=== PATIENT | male | born 1950 | race Caucasian/White ===

== ENCOUNTER 2018-08-14 00:19 | Emergency (ER) | payer OTHER ==
--- OUTSIDE RECORDS SUMMARY | 2018-08-14 00:51 | XMS REPORT | Continuity of Care Document ---
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 Active Onset: 04/11/2012 Chest pain Nain Jenkins M.D. Active Onset: 04/11/2012 Electrocardiogram abnormal Nain Jenkins M.D. Active Onset: 04/11/2012 Tachycardia Nain Jenkins M.D. Active Onset: 05/26/2012 Supraventricular premature beats Nain Jenkins M.D. Active Onset: 02/07/2013 Obstructive sleep apnea syndrome Nain Jenkins M.D. Active Onset: 01/01/2014 Essential hypertension Nain Jenkins M.D. Active Family History Date Family Member(s) Problem(s) Comments Onset: (age 84 Years) Father Stent no [place] Social History Type Date Description Comments Sex Unknown Marital Status Single Occupation [employer] Work[employer] ETOH Use Occasionally consumes alcohol Tobacco Use Start: Unknown End: Patient is a former smoker Unknown Recreational Drug Use Never Used Drugs Smoking Status Reviewed: 07/29/18 Patient is a former smoker Exercise Type/Frequency Exercises regularly Allergies, Adverse Reactions, Alerts Date Description Reaction Status Severity Comments 04/07/2012 Ibuprofen Active Medications Medication Date Status Form Strength Qnty SIG Indications Ordering Provider Hydrochlorothiazide 05/26 Active Tablets 25mg 90tab 1 by mary s mouth S. every day Iván Jenkins Ramipril Active Capsules 10mg 90cap 1 po qd Unknown /0000 s Aspirin Active Tablets 81mg 1 po qd Unknown /0000 Tramadol HCL Active Tablets 50mg 40tab 1-2 Unknown / s tablets every 6 hours as needed Multivitamins Active Tablets 30tab 1 po qd Unknown /0000 s Metoprolol Tartrate Active Tablets 25mg 180ta 1 by bs mouth S. t.i.d Iván Jenkins Cpap Active Device for use Unknown / while sleeping Lopressor 12/26 Hx Tablets 50mg 60tab 1/2 by s mouth S. - daily Gregory 01/01 Iván Hydrochlorothiazide Hx Tablets 12.5mg 90tab 1 po qd Unknown /0000 s - 05/26 Meclizine HCL 0000 Hx Tablets 25mg 1 tablet Unknown /0000 daily as - needed 11/25 Immunizations Description No Information Available Vital Signs Date Vital Result Comment 07/29/2018 11:13am Height 68 inches 5'8" Heart Rate 74 /min BP Systolic Sitting 142 mmHg rue large cuff BP Diastolic Sitting 90 mmHg rue large cuff Ejection Fraction 55-60% echo 12/28/17 11/26/2017 8:08am Height 68 inches 5'8" Weight 351.25 lb with shoes Heart Rate 94 /min BP Systolic Sitting 148 mmHg LA, l cuff BP Diastolic Sitting 78 mmHg LA, l cuff BMI (Body Mass Index) 53.4 kg/m2 Ejection Fraction 55%-60% echo 03/29/2017 9:16am Height 68 inches 5'8" Weight 330.25 lb with boots Heart Rate 74 /min BP Systolic Sitting 148 mmHg LA lrg cuff BP Diastolic Sitting 86 mmHg LA lrg cuff BMI (Body Mass Index) 50.2 kg/m2 Ejection Fraction 55% - 60% echo 01/03/14 07/21/2016 8:41am Height 68 inches 5'8" Weight 314.75 lb w/shoes Heart Rate 76 /min BP Systolic Sitting 158 mmHg LA lg cuff BP Diastolic Sitting 88 mmHg LA lg cuff BMI (Body Mass Index) 47.9 kg/m2 Ejection Fraction 55-60% Echo 12/07/13 11/01/2015 8:44am Height 68 inches 5'8" Weight 302.50 lb w/shoes Heart Rate 78 /min BP Systolic Sitting 116 mmHg LA lg cuff BP Diastolic Sitting 72 mmHg LA lg cuff BMI (Body Mass Index) 46.0 kg/m2 Ejection Fraction 55-60 echo 02/02/14 01/09/2015 8:48am Height 68 inches 5'8" Weight 300.00 lb Heart Rate 64 /min BP Systolic Sitting 142 mmHg LA, large BP Diastolic Sitting 78 mmHg LA, large BMI (Body Mass Index) 45.6 kg/m2 Ejection Fraction 55%-60% 01/03/14 06/15/2014 8:48am Height 68 inches 5'8" Weight 324.25 lb w/shoes Heart Rate 84 /min BP Systolic Sitting 138 mmHg LA lg cuff BP Diastolic Sitting 78 mmHg LA lg cuff Respiratory Rate 16 /min BMI (Body Mass Index) 49.3 kg/m2 01/01/2014 3:31pm Height 68 inches 5'8" Weight 300.00 lb Heart Rate 88 /min BP Systolic Sitting 144 mmHg BP Diastolic Sitting 78 mmHg BMI (Body Mass Index) 45.6 kg/m2 10/16/2013 8:34am Height 68 inches 5'8" Weight 310.00 lb Heart Rate 104 /min BP Systolic Sitting 144 mmHg BP Diastolic Sitting 84 mmHg BMI (Body Mass Index) 47.1 kg/m2 02/07/2013 8:43am Height 68 inches 5'8" Weight 316.00 lb Heart Rate 88 /min BP Systolic Sitting 148 mmHg BP Diastolic Sitting 80 mmHg Respiratory Rate 20 /min BMI (Body Mass Index) 48.0 kg/m2 06/23/2012 9:59am Height 68 inches 5'8" Weight 318.25 lb Heart Rate 104 /min rechecked 94 and regular BP Systolic Sitting 130 mmHg BP Diastolic Sitting 78 mmHg BMI (Body Mass Index) 48.4 kg/m2 05/26/2012 9:25am Height 68 inches 5'8" Weight 329.00 lb Heart Rate 88 /min BP Systolic 140 mmHg BP Diastolic 82 mmHg BMI (Body Mass Index) 50.0 kg/m2 04/11/2012 2:33pm Height 68 inches 5'8" Weight 326.00 lb Heart Rate 108 /min BP Systolic 144 mmHg BP Diastolic 92 mmHg BMI (Body Mass Index) 49.6 kg/m2 Results Test Date Facility Test Result H/L Range Note Laboratory test 12/30/2013 [facility] Troponin I 0.00 ng/mL N <0.03 1 finding [address] [place] [address] [phone] Comp Metabolic 12/30/2013 [facility] Sodium 142 mmol/L N 133- 145 Panel [address] [place] [address] [phone] Potassium 4.2 mmol/L N 3.7-5.6 Chloride 106 mmol/L N 101-111 Co2 Carbon Dioxide 28 mmol/L N 22-32 Anion Gap 8 mmol/L N 2-11 Glucose 98 mg/dL N 70-100 Blood Urea Nitrogen 21 mg/dL N 6-24 Creatinine 1.09 mg/dL N 0.67-1.17 BUN/Creatinine Ratio 19.3 N 8-20 Calcium 9.0 mg/dL N 8.6-10.3 Total Protein 6.3 g/dL Low 6.4-8.9 Albumin 4.2 g/dL N 3.2-5.2 Globulin 2.1 g/dL N 2-4 Albumin/Globulin Ratio 2.0 N 1-3 Total Bilirubin 0.60 mg/dL N 0.2-1.0 Alkaline Phosphatase 57 U/L N 34-104 Alt 11 U/L N 7-52 Ast 12 U/L Low 13-39 Egfr Non- 68.5 N >60 Egfr 88.2 N >60 2 CBC Auto Diff 12/30/2013 [facility] White Blood 10.2 10^3/uL N 4.8-10.[address] [place] [address] [phone] Red Blood Count 4.94 10^6/uL N 4.0-5.4 Hemoglobin 13.7 g/dL Low 14.0-18.0 Hematocrit 41 % Low 42-52 Mean Corpuscular Volume 83 fL N 80-94 Mean Corpuscular Hemoglobin 28 pg N 27-31 Mean Corpuscular HGB Conc 33 g/dL N 31-36 Red Cell Distribution Width 14 % N 10.5-15 Platelet Count 253 10^3/uL N 150-450 Mean Platelet Volume 9 um3 N 7.4-10.4 Abs Neutrophils 7.4 10^3/uL N 1.5-7.7 Abs Lymphocytes 1.8 10^3/uL N 1.0-4.8 Abs Monocytes 0.8 10^3/uL N 0-0.8 Abs Eosinophils 0.1 10^3/uL N 0-0.6 Abs Basophils 0.1 10^3/uL N 0-0.2 Abs Nucleated RBC 0.01 10^3/uL N Granulocyte % 72.4 % N 38-83 Lymphocyte % 17.7 % Low 25-47 Monocyte % 7.8 % N 1-9 Eosinophil % 1.4 % N 0-6 Basophil % 0.7 % N 0-2 Nucleated Red Blood Cells % 0.1 N Laboratory test 12/30/2013 [facility] Troponin I 0.00 ng/mL N <0.03 [address] [place] [address] [phone] Reference Range and Interpretation: TnI (ng/mL) Interpretation Less Than 0.03 ng/mL Not supportive of diagnosis of [place] 0.03 - 0.50 ng/mL Indeterminate: suggest serial studies if clinically indicated. Greater than 0.5 ng/mL Consistent with diagnosis of [place] 2 Because ethnic data is not always readily available, this report includes an eGFR for both -Americans and non- Americans. The National Kidney Disease Education Program (NKDEP) does not endorse the use of the MDRD equation for patients that are not between the ages of 18 and 70, are , have extremes of body size, muscle mass, or nutritional status, or are non- or non-. According to the National Kidney Foundation, irrespective of diagnosis, the stage of the disease is based on the level of kidney function: Stage Description GFR(mL/min/1.73 m(2)) 1 Kidney damage with normal or decreased GFR 90 2 Kidney damage with mild decrease in GFR 60-89 3 Moderate decrease in GFR 30-59 4 Severe decrease in GFR 15-29 5 Kidney failure <15 (or dialysis) 3 Reference Range and Interpretation: TnI (ng/mL) Interpretation Less Than 0.03 ng/mL Not supportive of diagnosis of [place] 0.03 - 0.50 ng/mL Indeterminate: suggest serial studies if clinically indicated. Greater than 0.5 ng/mL Consistent with diagnosis of [place] Procedures Date Code Description Status 07/29/2018 00986 EKG Tracing & Interpretation Completed 12/28/2017 94419 ECHO Transthoracic, Real-Time 2D With Doppler And Color Completed Flow 12/28/2017 66695 ECHO Transthoracic, Real-Time 2D With Doppler And Color Completed Flow 11/26/2017 49746 EKG Tracing & Interpretation Completed 03/29/2017 28594 EKG Tracing & Interpretation Completed 07/21/2016 08273 EKG Tracing & Interpretation Completed 11/01/2015 09709 EKG Tracing & Interpretation Completed 01/09/2015 09781 EKG Tracing & Interpretation Completed 06/15/2014 09093 EKG Tracing & Interpretation Completed 01/03/2014 12796 ECHO Transthoracic, Real-Time 2D With Doppler And Color Completed Flow 01/01/2014 76478 EKG Tracing & Interpretation Completed 12/01/2013 60500 Stress Test Supervsn W/Out I/R Completed 12/01/2013 45627 Treadmill Interp/Report Only Completed 11/15/2013 91753 Holter Monitoring 24 HR New Completed 10/16/2013 76425 EKG Tracing & Interpretation Completed 02/07/2013 57627 EKG Tracing & Interpretation Completed 05/05/2012 41977 Polysomnography Sleep Staging 4+ Parameters W/Cpap Completed 04/29/2012 37457 ECHO Transthoracic, Real-Time 2D With Doppler And Color Completed Flow 04/24/2012 80221 Polysomnography Sleep Staging 4+ Parameters Completed 04/13/2012 30743 Holter Monitor Review (24 hr)dr review & interp only Completed 04/11/2012 84559 EKG Tracing & Interpretation Completed 03/31/2012 58977 Treadmill Interp/Report Only Completed 03/31/2012 15967 Stress Test Supervsn W/Out I/R Completed Encounters Type Date Location Provider Dx Diagnosis Office Visit 11/26/2017 [facility] Qutaybparrish S. E66.01 Morbid ( severe) 8:20a Iván Jenkins obesity due to excess calories E78.2 Mixed hyperlipidemia G47.33 Obstructive sleep apnea (adult) (pediatric) I10 Essential (primary) hypertension R06.02 Shortness of breath Z68.43 Body mass index (BMI) 50-59.9 , adult Office Visit 03/29/2017 9:40a [facility] Nain S. I10 Cristo Jenkins M.D. (primary) hypertension G47.33 Obstructive sleep apnea (adult) (pediatric) E78.2 Mixed hyperlipidemia E66.01 Morbid (severe) obesity due to excess calories Z68.43 Body mass index (BMI) 50-59.9 , adult R94.31 Abnormal electrocardiogram [ECG] [EKG] Office Visit 07/21/2016 9:00a [facility] Nain S. I10 Cristo Jenkins M.D. (primary) hypertension G47.33 Obstructive sleep apnea (adult) (pediatric) E66.01 Morbid (severe) obesity due to excess calories E78.2 Mixed hyperlipidemia R94.31 Abnormal electrocardiogram [ECG] [EKG] Office Visit 11/01/2015 9:00a [facility] Nain S. I10 Cristo Jenkins M.D. (primary) hypertension G47.33 Obstructive sleep apnea (adult) (pediatric) E66.01 Morbid (severe) obesity due to excess calories E78.2 Mixed hyperlipidemia R42 Dizziness and giddiness Office Visit 01/09/2015 [facility] S. 401.9 Hypertension 9:00a Kae Jenkins M.D. Unspec 327.23 Obstructive Sleep Apnea Adult & Pediatric 278.01 Obesity Morbid 272.2 Hyperlipidemia Mixed Office Visit 06/15/2014 [facility] Gillette S. 401.9 Hypertension 9:00a Kae Jenkins M.D. Unspec 327.23 Obstructive Sleep Apnea Adult & Pediatric 278.01 Obesity Morbid Office Visit 01/01/2014 3:40p [facility] Debbietaybeh S. 786.50 Pain Chest Iván Jenkins Unspec 401.9 Hypertension Unspec 785.0 Tachycardia Unspec 278.01 Obesity Morbid 327.23 Obstructive Sleep Apnea Adult & Pediatric Office Visit 12/01/2013 2:31p [facility] Debbietaybparrish S. 786.50 Pain Chest Iván Jenkins Unspec 278.01 Obesity Morbid 327.23 Obstructive Sleep Apnea Adult & Pediatric Office Visit 12/01/2013 10:28a [facility] Torrey Underwood, 786.50 [facility],carlos alberto M.DNancy Unspec Hospitalists 401.9 Hypertension Unspec 278.01 Obesity Morbid 780.53 Hypersomnia W/ Sleep Apnea Unspecified Office Visit 11/30/2013 10:27a [facility] Bill Son 786.50 [facility],carlos alberto II, MMatthew Unspec Hospitalists 401.9 Hypertension Unspec 278.01 Obesity Morbid 780.53 Hypersomnia W/ Sleep Apnea Unspecified Office Visit 10/16/2013 [facility] Quyolieybeh S. 401.1 Hypertension 8:40a Cardiology Iván Jenkins Benign 327.23 Obstructive Sleep Apnea Adult [facility] Pediatric 794.31 Electrocardiogram (ECG) (EKG) Abnormal 785.0 Tachycardia Unspec Office Visit 02/07/2013 [facility] Nain S. 401.1 Hypertension 9:00a Kae Jenkins M.D. Benign 327.23 Obstructive Sleep Apnea Adult & Pediatric 427.61 Premature Beats Supraventricular 794.31 Electrocardiogram (ECG) (EKG) Abnormal Office Visit 06/23/2012 [facility] Selina Boyce, 401.1 Hypertension 10:30a Cardiology N.PNancy Benign Office Visit 05/26/2012 [facility] Nain S. 401.1 Hypertension 10:00a Kae Jenkins M.D. Benign 327.23 Obstructive Sleep Apnea Adult [facility] Pediatric 427.61 Premature Beats Supraventricular Office Visit 05/02/2012 2:18p Anabela Krueger 327.23 Obstructive Sleep Disorder [facility] Pediatric Office Visit 04/18/2012 10:51a Anabela Krueger 786.09 Dyspnea & Disorder [facility] Abnormalities Other 780.79 Malaise And Fatigue Other Office Visit 04/11/2012 [facility] Gil[facility] SNancy 401.1 Hypertension 3:00p Cardiology Iván Jenkins Benign 786.50 Pain Chest Unspec 794.31 Electrocardiogram (ECG) (EKG) Abnormal 785.0 Tachycardia Unspec Office 03/31/2012 [facility] Boudreaux 794.31 Electrocardiogram Visit 8:30a Cardiology Iván Jenkins (ECG) (EKG) Abnormal 786.50 Pain Chest Unspec 401.1 Hypertension Benign Plan of Treatment 07/29/2018 - Nain Jenkins M.D.G47.33 Obstructive sleep apnea (adult) ( pediatric)I10 Essential (primary) giqgvutrtgflF27.01 Morbid (severe) obesity due to excess hkfvhzroI66.2 Mixed scwdwgsnuslzfiU78.819 Aortic ectasia, unspecified siteNew Orders:Echocardiogram, Ordered: 07/29/18ollow up:8 months ov
--- NOTE | 2018-08-14 01:34 | ED ---
HPI Chest Pain - HPI Summary HPI Summary: This patient is a 67 year old M presenting to ED with a chief complaint of CP since 08/12/18. The CC is described as intermittent, lasting an average of 3-4 hours, usually comes after eating food. The patient rates the pain 3/10 in severity. Symptoms aggravated by nothing. Symptoms alleviated by nothing. Patient reports burping and occasional bilateral LE edema. Patient does not take any ASA and is allergic to ibuprofen. Last had a stress test about 3-4 years ago. PMHx of HTN. - History of Current Complaint Chief Complaint: EDChestWallPain Time Seen by Provider: 08/14/18 01:18 Hx Obtained From: Patient Onset/Duration: Started Days Ago Timing: Intermittent Current Severity: Mild Pain Intensity: 3 Pain Scale Used: 0-10 Numeric Aggravating Factor(s): Other: - after eating food Alleviating Factor(s): Nothing Associated Signs and Symptoms: Positive: Chest Pain, Other: - burping - Allergy/Home Medications Allergies/Adverse Reactions: Allergies Allergy/AdvReac Type Severity Reaction Status Date / Time MS Ibuprofen [Ibuprofen] AdvReac Intermediate Lower Verified 08/14/18 01:26 Kidney Function PMH/Surg Hx/FS Hx/Imm Hx Endocrine/Hematology History: Denies: Hx Diabetes Cardiovascular History: Reports: Hx Angina, Hx Hypertension Denies: Hx Coronary Artery Disease, Hx Hypercholesterolemia, Hx Myocardial Infarction, Hx Valvular Heart Disease Respiratory History: Reports: Hx Sleep Apnea Denies: Hx Asthma, Hx Chronic Obstructive Pulmonary Disease (COPD) GI History: Reports: Other GI Disorders - Obesity Sensory History: Reports: Hx Contacts or Glasses Opthamlomology History: Reports: Hx Contacts or Glasses - Surgical History Surgery Procedure, Year, and Place: T&A - Immunization History Date of Tetanus Vaccine: Unk Date of Influenza Vaccine: Fall 2012 Infectious Disease History: No Infectious Disease History: Denies: Traveled Outside the [place] in Last 30 Days - Family History Known Family History: Positive: Hypertension - Social History Alcohol Use: None Alcohol Amount: quit 2 wks ago Substance Use Type: Reports: None Hx Tobacco Use: Yes - QUIT 2008 Smoking Status (MU): Never Smoked Tobacco Type: Cigarettes Amount Used/How Often: 1 ppd Length of Time of Smoking/Using Tobacco: 30 years Have You Smoked in the Last Year: No Review of Systems Positive: Chest Pain Positive: Other - burping All Other Systems Reviewed And Are Negative: Yes Physical Exam - Summary Physical Exam Summary: VITAL SIGNS: Reviewed. GENERAL: Patient is a morbidly obese MALE who is lying comfortable in the stretcher. Patient is not in any acute respiratory distress. HEAD AND FACE: No signs of trauma. No ecchymosis, hematomas or skull depressions. No sinus tenderness. EYES: PERRLA, EOMI x 2, No injected conjunctiva, no nystagmus. EARS: Hearing grossly intact. Ear canals and tympanic membranes are within normal limits. MOUTH: Oropharynx within normal limits. NECK: Supple, trachea is midline, no adenopathy, no JVD, no carotid bruit, no c- spine tenderness, neck with full ROM. CHEST: Symmetric, no tenderness at palpation LUNGS: Clear to auscultation bilaterally. No wheezing or crackles. CVS: Regular rate and rhythm, S1 and S2 present, no murmurs or gallops appreciated. ABDOMEN: Soft, non-tender. No signs of distention. No rebound no guarding, and no masses palpated. Bowel sounds are normal. EXTREMITIES: FROM in all major joints, no edema, no cyanosis or clubbing. NEURO: Alert and oriented x 3. No acute neurological deficits. Speech is normal and follows commands. SKIN: Dry and warm Triage Information Reviewed: Yes Vital Signs On Initial Exam: Initial Vitals Temp Pulse Resp BP Pulse Ox 98 F 82 18 162/85 97 08/14/18 00:24 08/14/18 00:24 08/14/18 00:24 08/14/18 00:24 08/14/18 00:24 Vital Signs Reviewed: Yes Diagnostics - Vital Signs Vital Signs Temp Pulse Resp BP Pulse Ox 08/14/18 00:24 98 F 82 18 162/85 97 - Laboratory Result Diagrams: 08/14/18 01:38 08/14/18 01:38 Lab Statement: Any lab studies that have been ordered have been reviewed, and results considered in the medical decision making process. - Radiology CXR Radiology Interpretation Completed By: ED Physician Summary of Radiographic Findings: CXR reveals R basal atelectasis and no infiltrate. Pending radiologist offical report. - EKG 0117 Cardiac Rate: NL - 83 BPM EKG Rhythm: Sinus Rhythm ST Segment: Non-Specific Chest Pain Course/Dx - Course Assessment/Plan: This patient is a 67 year old M presenting to ED with a chief complaint of CP since 08/12/18. CXR reveals R basal atelectasis and no infiltrate. This patient will be discharged with instructions to see Dr. Jenkins as an outpatient to take a stress test. Patient understands and agrees. - Diagnoses Provider Diagnoses: Chest pain Discharge - Sign-Out/Discharge Documenting (check all that apply): Patient Departure - discharge - Discharge Plan Condition: Stable Disposition: HOME Patient Education Materials: Chest Pain (ED) Referrals: Nain Jenkins MD [Medical Doctor] - 08/15/18 Additional Instructions: Please see Dr. Jenkins to take a stress test as an outpatient on Wednesday, 08/15. RETURN TO THE EMERGENCY DEPARTMENT FOR CHANGING OR WORSENING SYMPTOMS. FOLLOW UP WITH PCP IN 1-2 DAYS. - Attestation Statements Document Initiated by Scribe: Yes Documenting Scribe: John Tello Provider For Whom Scribe is Documenting (Include Credential): Marek Su MD Scribe Attestation: IJohn, scribed for Marek Su MD on 08/14/18 at 0455. Status of Scribe Document: Ready
[2018-08-14 01:46] LABS: ABS Basophils 0.1 10^3/ul (0-0.2); ABS Eosinophils 0.1 10^3/ul (0-0.6); ABS Lymphocytes 1.4 10^3/ul (1.0-4.8); ABS Monocytes 0.9 10^3/ul (0-0.8); ABS Neutrophils 8.9 10^3/ul (1.5-7.7); ABS Nucleated RBC 0 10^3/ul; Eosinophil % 1.3 %; Hematocrit 41 % (42-52); Hemoglobin 13.7 g/dl (14.0-18.0); Lymphocyte % 12.4 %; Mean Corpuscular HGB Conc 33 g/dl (31-36); Mean Corpuscular Hemoglobin 27 pg (27-31); Mean Corpuscular Volume 82 fL (80-94); Mean Platelet Volume 8.6 fL (7.4-10.4); Nucleated Red Blood Cells % 0; Platelet Count 258 10^3/ul (150-450); Red Blood Count 5.04 10^6/ul (4.00-5.40); Red Cell Distribution Width 14 % (10.5-15); White Blood Count 11.4 10^3/ul (3.5-10.8)
[2018-08-14 02:03] LABS: EGFR Non-African American 73.9 (>60)
[2018-08-14 02:13] LABS: INR 0.94 (0.77-1.02)
[2018-08-14 05:15] VITALS: BP 158/86
== END 2018-08-14 05:10 | disposition home or self-care (01) ==
LOC: ED 00:19
DX: R07.9 Chest pain, unspecified (principal); I10 Essential (primary) hypertension; Z87.891 Personal history of nicotine dependence; E66.01 Morbid (severe) obesity due to excess calories
CPT/HCPCS: 36415; 71045; 80053; 83735; 84484; 85025; 85610; 85730; 93005; 99283

== ENCOUNTER 2019-12-03 15:53 | Emergency (ER) | payer MEDICARE ==
--- NOTE | 2019-12-03 16:11 | ED ---
Throat Pain/Nasal Congestion - HPI Summary HPI Summary: Patient is a 69 y/o M presenting to the ED for a chief complaint of right-sided dental pain, right-sided facial swelling, and throat pain that began on . Patient also reports intermittent fever and dysphasia. He denies shortness of breath. No aggravating or alleviating factors are reported. On 12/01/19, patient was seen by his dentist for throat pain who told the patient he did not appear to have an abscess. PMHx is significant for HTN and hernia. He is a former smoker. - History of Current Complaint Chief Complaint: EDDentalPain Time Seen by Provider: 12/03/19 16:05 Hx Obtained From: Patient Onset/Duration: Sudden Onset, Lasting Days, Still Present Severity: Moderate Associated Signs And Symptoms: Positive: Dysphagia Related History: T & A - Allergies/Home Medications Allergies/Adverse Reactions: Allergies Allergy/AdvReac Type Severity Reaction Status Date / Time niacin Allergy Unknown Unknown Verified 12/03/19 15:58 Reaction Details ibuprofen Allergy See Comment Verified 12/03/19 15:58 Home Medications: Home Medications Aspirin [Aspir 81] 81 mg PO DAILY 06/21/12 [History Confirmed 09/14/18] Multivitamin [Multivitamins] 1 cap PO DAILY 06/21/12 [History Confirmed 09/14/18 ] Ramipril 10 mg PO BEDTIME 06/21/12 [History Confirmed 09/14/18] Tramadol HCl 50 mg PO Q6H PRN 06/21/12 [History Confirmed 09/14/18] Hydrochlorothiazide 25 mg PO DAILY 06/24/12 [History Confirmed 09/14/18] Metoprolol Tartrate TAB* [Lopressor TAB*] 25 mg PO TID 12/30/13 [History Confirmed 09/14/18] PMH/Surg Hx/FS Hx/Imm Hx Previously Healthy: Yes Endocrine/Hematology History: Denies: Hx Diabetes Cardiovascular History: Reports: Hx Angina, Hx Hypertension Denies: Hx Coronary Artery Disease, Hx Hypercholesterolemia, Hx Myocardial Infarction, Hx Valvular Heart Disease Respiratory History: Reports: Hx Sleep Apnea Denies: Hx Asthma, Hx Chronic Obstructive Pulmonary Disease (COPD) GI History: Reports: Other GI Disorders - Obesity Sensory History: Reports: Hx Contacts or Glasses Opthamlomology History: Reports: Hx Contacts or Glasses - Surgical History Surgical History: Yes Surgery Procedure, Year, and Place: T&A - Immunization History Date of Tetanus Vaccine: Unk Date of Influenza Vaccine: Fall 2012 Infectious Disease History: No Infectious Disease History: Denies: Traveled Outside the [place] in Last 30 Days - Family History Known Family History: Positive: Hypertension - Social History Occupation: Employed Part-time Alcohol Use: Sober Alcohol Amount: quit 2 wks ago Hx Substance Use: No Substance Use Type: Reports: None Hx Tobacco Use: Yes - QUIT 2008 Smoking Status (MU): Former Smoker Type: Cigarettes Amount Used/How Often: 1 ppd Length of Time of Smoking/Using Tobacco: 30 years Have You Smoked in the Last Year: No Review of Systems Positive: Fever - In vitals, 98.2 F Positive: Dental Pain - Right-sided, Other - Positive throat pain and dysphagia Negative: Shortness Of Breath Positive: Edema - Right-sided facial All Other Systems Reviewed And Are Negative: Yes Physical Exam - Summary Physical Exam Summary: Constitutional: Well-developed, Well-nourished, Alert. (-) Distressed Skin: Warm, Dry HENT: Normocephalic; Atraumatic. Mandibular and sub-mandibular swelling of the lower jaw with poor dentition of the right molars. Eyes: Conjunctiva normal Neck: Musculoskeletal ROM normal neck. (-) JVD, (-) Stridor, (-) Nuchal rigidity Cardio: Rhythm irregularly irregular, Tachycardic, Heart sounds normal; Intact distal pulses; Radial pulses are 2+ and symmetric. (-) Murmur Pulmonary/Chest wall: Effort normal. (-) Respiratory distress, (-) Wheezes, (-) Rales Abd: Soft, (-) tenderness, (-) Distension, (-) Guarding, (-) Rebound Musculoskeletal: (-) Edema Lymph: (-) Cervical adenopathy Neuro: Alert, Oriented x3 Psych: Mood and affect Normal Triage Information Reviewed: Yes Vital Signs On Initial Exam: Initial Vitals Temp Pulse Resp BP Pulse Ox 98.2 F 127 22 142/85 97 12/03/19 15:54 12/03/19 15:54 12/03/19 15:54 12/03/19 15:54 12/03/19 15:54 Vital Signs Reviewed: Yes Procedures - Sedation Patient Received Moderate/Deep Sedation with Procedure: No Diagnostics - Vital Signs Vital Signs Temp Pulse Resp BP Pulse Ox 03/29/20 15:54 98.2 F 127 22 142/85 97 - Laboratory Result Diagrams: 12/03/19 16:27 12/03/19 16:27 Lab Statement: Any lab studies that have been ordered have been reviewed, and results considered in the medical decision making process. - CT Maxillofacial CT CT Interpretation Completed By: Radiologist Summary of CT Findings: Maxillofacial CT IMPRESSION: There is edema involving the right submandibular space with fluid collection in the right deep muscles of the floor of the mouth with a fluid collection measuring 2 cm presumably in the hyoglossus muscle. Mass effect is present at the base of the tongue on the oral pharynx. No definite narrowing of the larynx is otherwise noted. Reviewed by Dr. Correia. - EKG 18:46 Cardiac Rate: Other Rate - 132 BPM EKG Rhythm: Atrial Fibrillation ST Segment: Normal Ectopy: None Summary of EKG Findings: An EKG at 18:46 reveals atrial fibrillation with 132 BPM, nml axis, nml intervals. No STEMI. No acute changes. ED physician has reviewed and interpreted this EKG. EENT Course/Dx - Course Course Of Treatment: 69 y/o male p/w R facial swelling and concern for dental abscess. - exam w R sided swelling, submandibular swelling, no trismus. CT concerning for Oc's. Given clindamycin 600 mg, levaquin 750 mg. 2 L IVF. 8 mg morphine for pain. Easy WOB on RA. D/w ENT at who recommends transfer to facility w dental/OMFS. D/w [facility] transfer [place], who accepts the patient. - Diagnoses Provider Diagnoses: Oc's angina, Tachycardia, New onset atrial fibrillation - Provider Notifications Discussed Care Of Patient With: Trace Gallego - At 18:00, [facility] at [facility] requests patient transfer to a facility with oral surgery/ dental. At 18:13, Dr. Jalyn Payne at [facility] reviewed the patients case and agrees to accept the patient as a transfer to their facility for a diagnosis of Ludwigs angina. Patient requires transfer as there is no ENT credit union examiner at [facility] and patient requires a higher level of care not available at [facility]. Time Discussed With Above Provider: 18:00 Instructed by Provider To: Transfer Reason For Transfer: Specialty available at [facility] but not credit union examiner., Patient not appropriate for [facility]. - Critical Care Time Critical Care Time: 30-74 min - Upon my evaluation, this patient had a high probability of imminent or life-threatening deterioration due to Ludwigs which required my direct attention, intervention, and personal management. I have personally provided 35 minutes of critical care time exclusive of time spent on separately billable procedures. Time includes review of laboratory data, radiology results, discussion with consultants, and monitoring for potential decompensation. Interventions were performed as documented above. Discharge ED - Sign-Out/Discharge Documenting (check all that apply): Patient Departure - Transfer - Discharge Plan Condition: Stable Disposition: TRANS HIGHER LVL OF CARE FAC Referrals: Tommy Liz MD [Primary Care Provider] - - Billing Disposition and Condition Condition: STABLE Disposition: Trans Higher Lvl of Care Fac - Attestation Statements Document Initiated by Scribe: Yes Documenting Scribe: Selina Brumfield Provider For Whom Scribe is Documenting (Include Credential): Ramon Correia MD Scribe Attestation: I, Selina Brumfield, scribed for Ramon Correia MD on 12/03/19 at [id number]. Scribe Documentation Reviewed: Yes Provider Attestation: The documentation as recorded by the Selina palomino accurately reflects the service I personally performed and the decisions made by , Ramon Correia MD Status of Scribe Document: Viewed
[2019-12-03] MEDS: NS 0.9% 1000 ML** 1,000 ML IV ONE ×2 (16:35→18:17)
[2019-12-03 16:40] LABS: Hematocrit 44 % (42-52); Hemoglobin 14.9 g/dL (14.0-18.0); Mean Corpuscular HGB Conc 34 g/dL (31-36); Mean Corpuscular Hemoglobin 28 pg (27-31); Mean Corpuscular Volume 81 fL (80-94); Mean Platelet Volume 9.1 fL (7.4-10.4); Platelet Count 262 10^3/uL (150-450); Red Cell Distribution Width 15 % (10-15); White Blood Count 16.8 10^3/uL (3.5-10.8)
[2019-12-03 16:57] LABS: Albumin 3.6 g/dL (3.2-5.2); Calcium 9.1 mg/dL (8.6-10.3); EGFR African American 56.3 (>60); EGFR Non-African American 46.5 (>60); Globulin 3.5 g/dL (2-4); Potassium 3.3 mmol/L (3.5-5.0); Total Bilirubin 0.8 mg/dL (0.2-1.0); Total Protein 7.1 g/dL (6.4-8.9)
[2019-12-03] MEDS ORDERED: Clindamycin 600 MG/D5W BAG(*) 600 MG/50 ML BAG IV ONE (16:57)
[2019-12-03] MEDS ORDERED: Iodixanol* (CONTRAST) 320 MG/ML 100 ML SDV IV ONE (17:01)
[2019-12-03 17:47] LABS: ABS Basophils 0.1 10^3/ul (0-0.2); ABS Lymphocytes 0.9 10^3/ul (1.0-4.8); ABS Monocytes 1.9 10^3/ul (0-0.8); ABS Neutrophils 13.9 10^3/ul (1.5-7.7); Eosinophil % 0.1 %; Lymphocyte % 5.3 %
[2019-12-03] MEDS ORDERED: Levofloxacin 750 MG IVPREMIX(* 750 MG/150 ML BAG IVPB ONE (17:50)
[2019-12-03] MEDS ORDERED: Morphine 4 MG/ML VIAL (1 ml) 4 MG/ML VIAL IV ONE (18:03)
[2019-12-03] MEDS ORDERED: NS 0.9% 1000 ML** 1,000 ML IV ONE (18:20)
[2019-12-03] MEDS ORDERED: Metoprolol Tartrate TAB* 25 MG PO ONE (18:50)
[2019-12-03] MEDS ORDERED: Metoprolol Tartrate IV* 1 MG/ML 5 ML VIAL IV ONE (19:02)
[2019-12-03 19:03] VITALS: BP 150/74
== END 2019-12-03 19:54 | disposition short-term general hospital (02) ==
LOC: ED 15:53
DX: K12.2 Cellulitis and abscess of mouth (principal); R00.0 Tachycardia, unspecified; I48.91 Unspecified atrial fibrillation; R13.10 Dysphagia, unspecified; K08.89 Other specified disorders of teeth and supporting structures; E66.9 Obesity, unspecified; I10 Essential (primary) hypertension; Z87.891 Personal history of nicotine dependence; Z79.899 Other long term (current) drug therapy; Z79.82 Long term (current) use of aspirin
CPT/HCPCS: 36415; 70487; 80053; 83605; 85025; 93005; 96361; 96374; 96375; 99285; J2270; J3490; Q9967

== ENCOUNTER 2019-12-27 19:19 | Inpatient (IN) | payer MEDICARE ==
--- OUTSIDE RECORDS SUMMARY | 2019-12-27 19:40 | XMS REPORT | Continuity of Care Document ---
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 Onset: 04/11/2012 Chest pain Nain Jenkins M.D. Onset: 04/11/2012 Electrocardiogram abnormal Nain Jenkins M.D. Onset: 04/11/2012 Tachycardia Nain Jenkins M.D. Onset: 04/11/2012 Supraventricular premature beats Nain Jenkins M.D. Onset: 2011 Obstructive sleep apnea syndrome Nain Jenkins M.D. Onset: 2012 Essential hypertension Nain Jenkins M.D. 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 Disorder of shoulder Keagan Chavez MD Onset: 12/29/2018 Social History Type Date Description Comments Sex Unknown ETOH Use Occasionally consumes alcohol Tobacco Use Start: Unknown End: Patient is a former smoker Unknown Recreational Drug Use Never Used Drugs Smoking Status Reviewed: 12/25/19 Patient is a former smoker Exercise Type/Frequency Exercises regularly Allergies, Adverse Reactions, Alerts Active Allergies Reaction Severity Comments Date Ibuprofen 04/07/2012 Niacin 08/23/2018 Medications Active Medications SIG Qnty Indications Ordering Date Provider Ramipril 1 po qd 90caps Unknown 10mg Capsules Aspirin 1 po qd Unknown 81mg Tablets Tramadol HCL 1-2 tablets 40tabs Unknown 50mg Tablets every 6 hours as needed Multivitamins 1 po qd 30tabs Unknown Tablets Cpap for use while Unknown Device sleeping Hydrochlorothiazide 1 by mouth 90tabs Qutaybeh S. 25mg Tablets every day Iván Jenkins Rosuvastatin Calcium Tommy Liz 5mg Tablets MD Kranthi Metoprolol Succinate ER Take One By Unknown 50mg Mouth Twice Tablets ER 24HR Daily Immunizations Description No Information Available Vital Signs Date Vital Result Comment 12/25/2019 1:58pm Height 68 inches 5'8" Weight 341.00 lb Heart Rate 78 /min irregular BP Systolic Sitting 130 mmHg BP Diastolic Sitting 78 mmHg Respiratory Rate 16 /min reg Body Temperature 97.0 F O2 % BldC Oximetry 98 % BMI (Body Mass Index) 51.8 kg/m2 07/24/2019 8:18am Height 68 inches 5'8" Weight 330.00 lb with shoes Heart Rate 64 /min radial, skipped beats BP Systolic Sitting 142 mmHg LA, lg cuff BP Diastolic Sitting 84 mmHg LA, lg cuff BP Systolic Standing 136 mmHg LA, lg cuff BP Diastolic Standing 82 mmHg LA, lg cuff BMI (Body Mass Index) 50.2 kg/m2 Ejection Fraction 50%-55% echo 09/12/18 Results Description No Information Available Procedures Date Code Description Status 07/27/2019 93855 ECHO Transthoracic, Real-Time 2D With Doppler And Color Completed Flow 07/27/2019 66307 ECHO Transthoracic, Real-Time 2D With Doppler And Color Completed Flow 07/24/2019 51049 EKG Tracing & Interpretation Completed Medical Devices Description No Information Available Encounters Type Date Location Provider Dx Diagnosis Office Visit 12/25/2019 Pulmonology And Lynne Cosby, G47.33 Obstructive sleep 2:[facility]p [facility] DNP, RN, CLINICAL RESEARCH ANALYST-BC apnea (adult) Carrier Loader (pediatric) R00.8 Other abnormalities of heart beat Office Visit 07/24/2019 Ferdinand Boudreaux G47.33 Obstructive sleep 8:40a Cardiology Iván Jenkins apnea (adult) (pediatric) E66.9 Obesity, unspecified E78.2 Mixed hyperlipidemia I10 Essential (primary) hypertension I77.810 Thoracic aortic ectasia Assessments Date Code Description Provider 12/25/2019 G47.33 Obstructive sleep apnea (adult) Lynne Cosby DNP, RN, (pediatric) [facility] 12/25/2019 R00.8 Other abnormalities of heart beat Lynne Cosby DNP, RN, [facility] 07/27/2019 I77.810 Thoracic aortic ectasia Nain Jenkins M.D. 07/27/2019 I77.810 Thoracic aortic ectasia [facility] ECHO Schedule 07/27/2019 G47.33 Obstructive sleep apnea (adult) [facility] ECHO Schedule (pediatric) 07/27/2019 I10 Essential (primary) hypertension Ica ECHO Schedule 07/24/2019 G47.33 Obstructive sleep apnea (adult) Nain Jenkins M.D. (pediatric) 07/24/2019 E66.9 Obesity, unspecified Nani Jenkins M.D. 07/24/2019 E78.2 Mixed hyperlipidemia Nain Jenkins M.D. 07/24/2019 I10 Essential (primary) hypertension Nain Jenkins M.D. 07/24/2019 I77.810 Thoracic aortic ectasia Nain Jenkins M.D. Plan of Treatment 12/25/2019 - Lynne Cosby DNP, RN, [facility]G47.33 Obstructive sleep apnea ( adult) (pediatric)New Orders:Sleep-Homecare, Ordered: 12/25/19Comments:2011 ( AHI 99.8/hr, O2 brisa 83%)Follow up:1 yearRecommendations:Continue PAP device, Benefitting and compliant with treatment. Cleaning Wipe off mask daily (baby wipe-no scent, or warm water) Clean mask, tubing, filter, and water chamber weekly in mild no scent dish soap and water. Hang to dry. If you have any sleepiness while driving you MUST avoid operating a vehicle or machinery. If you have difficulty with your equipment, or need to replace your mask or hoses, please contact your homecare agency. A weight change of 20 pounds or more may have an effect onyour equipment; if you are experiencing problems please call for an appointment. 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
--- OUTSIDE RECORDS SUMMARY | 2019-12-27 19:40 | XMS REPORT | Summary of Care ---
:1950 Author Organization [facility] Address [address] [place] [address] Care Team Providers Name Role Phone Tommy Liz MD Primary Care Provider Reason for Visit Reason Comments ED To ED Transfer Turner>>ENT consult Auth/Cert Status Reason Specialty Diagnoses / Procedures Referred By Contact Referred To Contact Diagnoses Oc's angina [place] Angina Oc's angina Encounter Details Date Type Department Care Team Description 12/03/2019 - Hospital [facility] MEDICAL ICU Torrey Gray MD [address] [place] [address] [phone] Oc's angina 12/05/2019 Encounter [address] [facility] Mckinley Cancino [facility] [address] [facility] 2nd [place] [address] [phone] (Primary Dx) [place], [place] Karla Gan MD [address] [facility] 2nd Floor [address] [place] [address] [phone] [id number] Allergies Active Allergy Reactions Severity Noted Date Comments Ibuprofen 12/03/2019 Unknown reaction Niacin And Related 12/03/2019 Unknown reaction documented as of this encounter (statuses as of 12/05/2019) Medications Medication Sig Dispensed Refills Start End Date Status Date ramipril (ALTACE) 10 MG Take 10 mg 0 Active capsule by mouth daily hydroCHLOROthiazide 25 Take 25 mg 0 Active MG Oral Tablet by mouth (HYDRODIURIL) daily traMADol HCl 50 MG Oral Take 50-100 0 Active Tablet (ULTRAM) mg by mouth every 6 (six) hours as needed for Pain Rosuvastatin Calcium 5 Take 5 mg 0 Active MG Oral Tablet by mouth (CRESTOR) daily Tab-A-Aneesh/Beta Take 1 0 Active Carotene Oral Tablet tablet by mouth daily Aspirin 81 MG Oral Take 81 mg 0 Active Tablet by mouth daily Metoprolol Tartrate 50 Take 1 60 tablet 11 12/04/19 Active MG Oral Tablet tablet by 0 21 (LOPRESSOR) mouth Two Times Daily Acetaminophen 160 Take 20 mLs 120 mL 0 12/12/19 Active MG/5ML Oral Solution by mouth 0 20 (TYLENOL) every 6 (six) hours as needed for Fever (Temp > 38.5) for up to 7 days Amoxicillin-Pot Take 1 28 tablet 0 12/19/19 Active Clavulanate 875-125 MG tablet by 0 20 Oral Tablet (AUGMENTIN) mouth Two Times Daily predniSONE 20 MG Oral Take 2 14 tablet 0 12/12/19 Active Tablet (DELTASONE) tablets by 0 20 mouth daily for 7 days Metoprolol Tartrate 25 Take 25 mg by mouth every morning 0 12/05/19 Discontinued MG Oral Tablet Take 50 mg by mouth every evening 20 (Stop Taking at (LOPRESSOR) Discharge) documented as of this encounter (statuses as of 12/05/2019) Active Problems Problem Noted Date Oc's angina 12/03/2019 documented as of this encounter (statuses as of 12/05/2019) Social History Tobacco Use Types Packs/Day Years Used Date Current Every Day Smoker Alcohol Use Drinks/Week oz/Week Comments Yes social Sex Assigned at Date Recorded Not on file Job Start Date Occupation Industry Not on file Not on file Not on file Travel History Travel Start Travel End No recent travel history available. documented as of this encounter Last Filed Vital Signs Vital Sign Reading Time Taken Comments Blood Pressure 138/74 12/05/2019 12:30 PM EDT Pulse 96 12/05/2019 12:30 PM EDT Temperature 36.7 12/05/2019 12:30 PM C (98.1 EDT F) Respiratory Rate 33 12/05/2019 12:30 PM EDT Oxygen Saturation 96% 12/05/2019 12:30 PM EDT Inhaled Oxygen Concentration - - Weight 150.1 kg (330 lb 14.6 oz) 12/04/2019 12:00 AM EDT Height 175.3 cm (5' 9.02") 12/04/2019 12:00 AM EDT Body Mass Index 48.84 12/04/2019 12:00 AM EDT documented in this encounter Progress Notes Shraddha Jaimes, RN - 12/05/2019 12:51 PM EDTPt discharged to home, patient arranged transport via taxi. Ttaken by transport to [facility] to await taxi due to arrive 1300. All VSS. Patient agreeable to discharge, all questions answered and discharge paperwork signed TOTSZander pelletier, PharmD - 12/05/2019 8:05 AM EDT Pharmacy Inpatient Medication History Review Prior to Admission Medications Prescriptions Last Dose Informant Patient Reported? Taking? Aspirin 81 MG Oral Tablet Past Week at Unknown time Self Yes Yes Sig: Take 81 mg by mouth daily Metoprolol Tartrate 25 MG Oral Tablet (LOPRESSOR) Past Week at Unknown time Pharmacy Yes Yes Sig: Take 25 mg by mouth every morning Take 50 mg by mouth every evening Rosuvastatin Calcium 5 MG Oral Tablet (CRESTOR) Past Week at Unknown time Pharmacy Yes Yes Sig: Take 5 mg by mouth daily Tab-A-Aneesh/Beta Carotene Oral Tablet Past Week at Unknown time Self Yes Yes Sig: Take 1 tablet by mouth daily hydroCHLOROthiazide 25 MG Oral Tablet (HYDRODIURIL) Past Week at Unknown time Pharmacy Yes Yes Sig: Take 25 mg by mouth daily ramipril (ALTACE) 10 MG capsule Past Week at Unknown time Pharmacy Yes Yes Sig: Take 10 mg by mouth daily traMADol HCl 50 MG Oral Tablet (ULTRAM) Past Week at Unknown time Pharmacy Yes Yes Sig: Take 50-100 mg by mouth every 6 (six) hours as needed for Pain Facility-Administered Medications: None The following medications have been added: aspirin , multivitamin , Crestor The following medications have been removed: The following medications have been modified: metoprolol , ramipril , tramadol The patient takes the following medications differently than prescribed: Medication History Source: [facility]/pharmacy #[id number] [place] [address] Interview conducted over the phone with pt and confirmed with pharmacy due to work conditions as of 11/16/2019. The above prior to admission medications have been compared to current inpatient orders. Discrepancies: Several home medications not currently ordered. Takes metoprolol 25mg every morning and 50mg even night at home which is currently ordered 50mg twice daily. Recommendations: Please consider ordering missing home medications if/when appropriate. Please consider changing metoprolol dose to reflect home dose if/ when appropriate. Medication history was completed based on information available during this patient encounter, the list above may not be all inclusive. Thank you, Zandre Abbott PharmD Brayden Sweeney RN - 12/05/2019 4:43 AM EDT Provider Name: Alon VARGAS Provider Role: Consulting Physician Method of Communication: Page Response: No new orders Notification Time: 429 Results for BELKIS HOUSER ( ) as of 12/05/2019 04:44 Ref. Range 12/05/2019 03:24 Potassium Latest Ref Range: 3.4 - 5.1 mmol/L 3.6 Wes Lugo MBBS - 12/04/2019 1:30 PM EDT ICU PROGRESS NOTE Subjective Pt was seen and examined at the bed side. The patient reported that his swelling is getting better and the pain has improved. His heart rate has been in 110s-120s but has no history of atrial fibrillation. Review of Systems Constitutional: Negative for activity change, appetite change, chills and fever. HENT: Positive for facial swelling. Negative for congestion, drooling and hearing loss. Eyes: Negative for discharge and itching. Respiratory: Negative for apnea and chest tightness. Cardiovascular: Negative for chest pain and leg swelling. Gastrointestinal: Negative for abdominal distention and abdominal pain. Endocrine: Negative for cold intolerance and heat intolerance. Genitourinary: Negative for difficulty urinating and dysuria. Musculoskeletal: Negative for arthralgias and back pain. Skin: Negative for color change and pallor. Neurological: Negative for dizziness and headaches. Hematological: Negative for adenopathy. Psychiatric/Behavioral: Negative for agitation and behavioral problems. Objective Vitals: 12/04/19 1000 12/04/19 1100 12/04/19 1200 12/04/19 1300 BP: 131/72 134/74 154/82 Pulse: (!) 110 (!) 124 (!) 119 (!) 121 Resp: (!) 28 (!) 21 (!) 20 (!) 27 Temp: 37 C (98.6 F) SpO2: 97% 95% 98% 97% Tmax: Temp (24hrs), Av.3 C (99.1 F), Min:37 C (98.6 F), Max: 37.9 C (100.3 F) Intake/Output Summary (Last 24 hours) at 12/04/2019 1330 Last data filed at 12/04/2019 1300 Gross per 24 hour Intake 3258.78 ml Output 850 ml Net 2408.78 ml I/O this shift: In: 1461.1 [P.O.:860; I.V.:487.8; IV Piggyback:113.4] Out: 400 [Urine:400] Recent Labs 12/03/19 2336 POCGLU 132 Physical Exam: Physical Exam Constitutional: Appearance: He is obese. HENT: Head: Normocephalic and atraumatic. Nose: Nose normal. Mouth/Throat: Mouth: Mucous membranes are moist. Pharynx: Oropharynx is clear. Eyes: Conjunctiva/sclera: Conjunctivae normal. Pupils: Pupils are equal, round, and reactive to light. Neck: Musculoskeletal: Normal range of motion. No neck rigidity. Cardiovascular: Rate and Rhythm: Tachycardia present. Rhythm irregular. Pulmonary: Effort: Pulmonary effort is normal. No respiratory distress. Breath sounds: No wheezing. Abdominal: General: Bowel sounds are normal. Palpations: Abdomen is soft. There is no mass. Musculoskeletal: Normal range of motion. Right lower leg: No edema. Left lower leg: No edema. Skin: General: Skin is warm. Findings: No lesion. Neurological: General: No focal deficit present. Mental Status: He is alert and oriented to person, place, and time. Psychiatric: Mood and Affect: Mood normal. Behavior: Behavior normal. Mechanical ventilation: None Weaning today: n/a Sedation: None Sedation protocol used: n/a Medications reviewed: yes Vasopressors: None Other Infusions: None Antibiotics: Ampicillin-sulbactem Therapeutic anticoagulations: None Lines, tubes, monitors and restraints Description Present Still Required? Comments ? Yes No ETT [] [] [] Tracheostomy [] [] [] PICC [] [] [] CVC [] [] [] A-line [] [] [] Holman [] [] [] NG/NJ [] [] [] Restraints [] [] [] [] [] [] [] [] [] [] [] [] LABS: Recent Labs 12/03/19221412/04/19 0637 WBC 16.2* 14.1* HGB 14.7 13.4* HCT 42.7 40.3* MCV 80.5 82.8 PLT 267 222 Recent Labs 12/03/192214 NEUTOPHILPCT 84 MONOPCT 8 Recent Labs 12/03/19221412/04/19 0637 NA 133* 135* K 3.4 4.4 CL 94* 101 BICARBONATE 20* 20* BUN 38* 34* CREATININE 1.27* 1.09 GLUCOSE 128 161* Lab Results Component Value Date PROT 6.8 12/03/2019 ALBUMIN 3.5 12/03/2019 AST 49 (H) 12/03/2019 ALT 55 (H) 12/03/2019 TBILI 0.7 12/03/2019 ALKPHOS 69 12/03/2019 Recent Labs 12/03/19221412/03/19235412/04/19 0637 CALCIUM 8.4* -- 8.1* MG -- -- 2.1 PHOS -- 2.5 3.1 Recent Labs 12/03/192354 INR 1.31 No results for input(s): PO2ART, XLT1OLI, Q1OWCJRTHFHH in the last 168 hours. Microbiology: Wound culture: gram negative rods and gram positive cocci in chains. Imaging/Other studies: EKG: atrial fibrilation Active problems: Active Problems: Oc's angina Assessment/Plan Mr. Belkis Houser is a 69 y.o. male with PMH of hypertension under medication who presented as a transfer from outside hospital for ENT evaluation of Oc' s angina and is admitted to the ICU for airway observation. Neurology # Alert and oriented. Respiratory # KATERINE - continue with CPAP. Cardiovascular # New onset atrial fibrillation with RVR - likely secondary to infection - CHADVASC score of 2: The atrial fibrillation should resolve with resolution of infection. Will assess the need of anticoagulation tomorrow before discharge. - increased metoprolol to 50 mg bid. # Hypertension - continue with HCTZ and metoprolol; ramipril is held due to OSCAR - metoprolol increased to 50 mg bid from 25 mg bid for the heart rate control. Infectious # Oc's angina - CT revealed edema of the submandibular space with fluid collection in the hypoglossus muscle. - the patient was septic with tachycardia and leukocytosis of 16 at OSH and received clindamycin andlevaquin. - wound culture showed gram negative james and gram positive cocci in chains. - Unasyn started: will continue; - will continue decadron Gastroenterology/Nutrition - Diet:Sodium restricted diet. - GI Prophylaxis: Not indicated. Renal/Fluids/Electrolytes # OSCAR, resolved. - per Rhio baseline serum Cr.of 1.01 in 2018 and serum Cr.of 1.27 POA - serum Cr this morning was to 1.09 - continue monitoring. DVT Prophylaxis: low molecular weight heparin GI Prophylaxis: Not Indicated Nutrition: Solid Diet Activity: out of bed and ambulate Code Status: Full Code Disposition: ICU; probable discharge tomorrow. Wes Aviles MBBS 12/04/2019 Associated attestation - Karla Gan MD - 12/04/2019 11:17 PM EDTSee my note earlier today-the note is attached to the H&P. Karla Gan MDKoves, Patricia, RN - 12/04/2019 1:09 PM EDTCase Management Screen & Assessment Patient's Name: Belkis Houser Date of : 1950 Age: 69 y.o. Gender: male Attending Provider: Karla Gan MD Admitting Diagnosis: Oc's angina [K12.2] Admission Date and Time: 12/03/2019 9:16 PM High Risk Criteria - RAMPMAN/Upon Arrival RAMPMAN-Type of Residence: Private residence RAMPMAN- Home Care Services: No Limited Home Supports/Lives Alone?: Yes Multi trauma/Critical care admit?: Yes Head/Spinal cord injury?: No Self pay/No prescription plan?: No Active with homecare?: No Multiple ED visits?: No Related/Unplanned readmission within 30 days?: No Complex/New medical issues: Oc's Angina Relevant comorbidities: HTN, tonsillectomy, obesity SNF/half-way/Facility: from [facility] Bedhold?: (on tx agreement) Psychosocial considerations: single, lives alone CM Screen Outcome [place] Cutter Screen Outcome: Meets high risk criteria for active case loader operator intervention Patient/Agent informed of choice and given written list?: Patient/agent declined list Important message (Medicare rights) given?: Yes Date Given: 12/03/19 CM Chart Review Notice of Privacy Practice Signed?: Yes Self Pay: No Prescription Plan?: Yes (comment) Pt. Pharmacy & Phone # : [facility] RAMPMAN: Functional/Environmental Assessment Came from Rehab/SNF, plan to return?: No Brief physical/psychosocial summary: single, lives alone Bathing: Independent Dressing: Independent Toileting: Independent Medication administration: Independent Transfers: Independent Ambulation: Independent Meal preparation: Independent Number of stairs into home: 2 Number of stairs to bathroom: 0 Number of stairs to bedroom: 0 Potential Issues/Teaching Needs Physical: hx obesity Other: lives alone Case Management Review Date CM re-review date needed?: Yes Case Management Review Date: 12/05/19 Discharge Assessment Referred to Coordinator for: richardson check on cab ride to [facility] from Patient/family informed of need for discharge planning?: Yes Patient/Agent informed of choice and given written list?: Patient/agent declined list Patient expects to be discharged to:: home Actual discharge location : Home-No Needs Home with support services reinstated?: No Living Arrangements: Alone Support Systems: None Type of Residence: Private residence Home services arranged?: No Note: pt was introduced to the role of case management and dc planning. Pt was transferred from [facility] for r/o Oc's angina. Pt was found to have a R submandibular fluid filled space apr. 2cm in size. He was also in Afib withRVR. Pt is single, lives alone. When asked, he stated he could hire help if he needed it. He reports to be independent. The plan is to dc home with ? PO/IV abx-yet to have recs. Pt asked to have cab ride back to [facility] priced. [place] asked. Awaits result. Continues to follow. Nikki, Marilailectronically signed by Marium Jordan RN at 12/04/2019 1:14 PM Lesley Garcia, RD - 12/04/2019 9:45 AM EDT Department of Food and Nutrition Nutritional Evaluation and Care Plan MST x 2 Basic Evaluation Patient is a 69 y.o. male, admitted on with a diagnosis of Oc angina. Past Medical History: Past Medical History: Diagnosis Date Hypertension Past Surgical History: Past Surgical History: Procedure Laterality Date TONSILLECTOMY Home Medications: Prior to Admission medications Medication Sig Start Date End Date Taking? Authorizing Provider hydroCHLOROthiazide 25 MG Oral Tablet (HYDRODIURIL) Take 25 mg by mouth daily Yes Historical Provider, Metoprolol Tartrate 25 MG Oral Tablet (LOPRESSOR) Take 25 mg by mouth Two Times Daily Yes Historical Provider, Ramipril 1.25 MG Oral Capsule (ALTACE) Take 1.25 mg by mouth daily Yes Historical Provider, traMADol HCl 50 MG Oral Tablet (ULTRAM) Take 50 mg by mouth every 3 (three) hours as needed for Pain Yes Historical Provider, Multidisciplinary Problems: Active Problems: Oc's angina Current Diet/Tube Feed/TPN Order: Diet Age: Adult; Diet: Regular Active, Scheduled Medications: Current Facility-Administered Medications Medication Dose Route Frequency Provider Last Rate Last Dose acetaminophen (TYLENOL) 160 MG/5ML solution (ADULT) 650 mg 650 mg Oral Q6H PRN Sivan Chi MD ampicillin-sulbactam (UNASYN) 3 g in sodium chloride 0.9 % 100 mL IVPB 3 g Intravenous Q6H Sivan Chi MD Stopped at 12/04/19 0704 dexamethasone (DECADRON) injection 8 mg 8 mg Intravenous Q8H JESSICA Wells 8 mg at 12/04/19 0437 fentaNYL (SUBLIMAZE) (PF) injection 25 mcg 25 mcg Intravenous Q4H PRN Sivan Chi MD 25 mcg at 12/04/19 0656 heparin (porcine) 5000 UNIT/ML injection 5,000 Units 5,000 Units Subcutaneous BID Sivan Chi MD 5,000 Units at 12/04/19 0827 hydrochlorothiazide (HYDRODIURIL) tablet 25 mg 25 mg Oral Daily Sivan Chi MD 25 mg at 12/04/19 0827 metoprolol tartrate (LOPRESSOR) tablet 25 mg 25 mg Oral BID Sivan Chi MD 25mg at 12/04/19 0827 NaCl infusion 0.9 % Intravenous Continuous Sivan Chi MD 75 mL/hr at Allergies: Ibuprofen and Niacin and related Cultural/Synagogue/Ethnic food preferences: none identified Recent Labs Lab 12/03/195 12/04/19 0637 NA 133* -- 135* CL 94* -- 101 BUN 38* -- 34* GLUCOSE 128 -- 161* K 3.4 -- 4.4 BICARBONATE 20* -- 20* CREATININE 1.27* -- 1.09 CALCIUM 8.4* -- 8.1* MG -- -- 2.1 PHOS -- < > 3.1 ALBUMIN 3.5 -- -- < > = values in this interval not displayed. Interview: PMH significant for HTN. Pt presents as a transfer from OSH for ENT evaluation of Oc angina. Pt admitted to MICU for airway observation. Pt found to have R sublingual/submandibular space abscess 2/2 odontogenic infection. Plan for possible tooth extraction. Pt reports poor intake x 3 days prior to admission. Pt attributes poor PO intake to difficulty swallowing. He reports he had to grind up Jell-o and fruits and force himself to swallow. Pt reports priorto the 3 days he ate "gingerly". He reports a UBW of 330 lbs and a 15 lb wt loss from his UBW. However, admit wt is consistent with UBW. Diet advanced to regular diet today. No documented PO intake since diet was advanced. Pt may benefit from R AND D LAB TECHNICIAN consult given report of difficulty swallowing. Labs and meds reviewed. Low Na+, elevated BUN. + dexamethasone, hydrochlorothiazide, KCl, 0.9% NaCl @ 75 mL/hr. LBM RAMPMAN. Learning or discharge needs identified: TBD Height: 175.3 cm Weight: (!) 150.1 kg (330 lb 14.6 oz) Weight Method: Actual: Bed scale Body Mass Index: Body mass index is 48.84 kg/m. IBW Range (kg): 72.7-80 kg Weight change: no previously documented wts Obesity or underweight? Yes BMI >/= 40 Morbid Obesity Malnutrition Identified: No Malnutrition Criteria: unable to identify 2 criteria for malnutrition at this time Skin: Intact Nutrition Obstacles: Swallowing Energy/Protein Requirement based on: 80 kg Current Protein Needs: 1.5 g per kg body wt. = 120 g Current Energy Needs: 25-30 kcal per kg body wt. = 6777-8209 kcal Estimated Fluid Needs: 1 ml/kcal I/O last 3 completed shifts: In: 1872.7 [I.V.:1637.4; IV Piggyback:235.3] Out: 450 [Urine:450] I/O this shift: In: 298.5 [P.O.:60; I.V.:225.2; IV Piggyback:13.4] Out: 250 [Urine:250] Nutrition Diagnostic Statement(s): Patient is at nutritional risk. Current risk is Moderate. Patient is found to have inadequate oral food/beverage intake related to swallowing difficulty/dysphagia as evidenced by reported 15 lb wt loss. Nutrition Intervention(s): Nutrition Prescription/Diet Order: Regular diet Nutrition Goal(s)/Outcome(s): Patient will tolerate >75% of meals during admission. Patient will maintain weight during admission. Refer to Patient Education for current learning assessment and patient education needs. Refer to Care Plan for Interdisciplinary Care Plan documentation. Recommendations: - Regular diet and encourage PO intake - Consider R AND D LAB TECHNICIAN consult given reported difficulty swallowing - If PO intake is <50%, may offer nutrition supplement: Ensure Max - Weigh Pt 1-2 x per week Monitoring/Evaluation: Labs, Pt care rounds, Weight, I&O and PO intake RD will continue to monitor throughout length of stay and will provide additional recommendations asappropriate. Please call with any questions/ concerns. Eliot Lilly MD - 12/04/2019 7:38 AM EDT ENT Inpatient Progress Note ( HD: 1 ) Interval hx: NAEON. Pt reports moderate improvement after needle aspiration. Reports mild pain. VS Vitals: 12/04/19 0400 12/04/19 0500 12/04/19 0600 12/04/19 0700 BP: 149/83 106/73 148/75 133/80 Pulse: (!) 120 (!) 118 (!) 114 (!) 124 Resp: (!) 24 (!) 21 (!) 28 (!) 22 Temp: 37 C (98.6 F) SpO2: 95% 96% 96% 95% I/O: I/O last 3 completed shifts: In: 1872.7 [I.V.:1637.4; IV Piggyback:235.3] Out: 450 [Urine:450] Physical Examination General: Awake, alert, NAD. Voice strong and clear. No stridor or stertor Respiratory: Breath sounds b/l, on RA Head: Normocephalic, atraumatic. Nose: External nose unremarkable. Anterior nares clear. Ears: Bilateral auricles unremarkable. Oral Cavity/Oropharynx: Improved trismus. FOM slight fullness R>L. Mild edema of tongue.Overall poor dentition with several carious teeth and missing teeth. No intraoral drainage. Face: Symmetric. CN V and VII intact. Neck: Supple, trachea midline, no masses, no lymphadenopathy Recent Labs Lab 12/03/19 2215 12/04/19 0637 WBC 16.2* 14.1* HGB 14.7 13.4* HCT 42.7 40.3* PLT 267 222 NEUTOPHILPCT 84 -- Recent Labs Lab 12/03/19221412/04/19 0637 NA 133* 135* K 3.4 4.4 CL 94* 101 BICARBONATE 20* 20* BUN 38* 34* CREATININE 1.27* 1.09 GLUCOSE 128 161* Recent Labs Lab 12/03/19221412/03/19235412/04/19 0637 CALCIUM 8.4* -- 8.1* MG -- -- 2.1 PHOS -- 2.5 3.1 Recent Labs Lab 12/03/19 235 INR 1.31 Assessment: Pt is a 69 y.o. male with PMH of HTN with R sublingual/ submandibular space abscess / odontogenic infection s/p needle aspiration ~4cc of purulent drainage. NPL demonstrated patent airway but with mild posterior displacement of BOT. MICU airway admit for airway observation and IV abx. Plan: -Dental consult for possible extraction - Ok for regular diet - Decadron 8 mg Q8H -IV antibiotics (unasyn) -F/U cultures -Warm compress, gentle massage -Please page ENT wire preparation machine tender resident or airway pager for any acute worsening -Trach tray at the bedside Eliot Saenz MD Otolaryngology PGY1 12/04/19 7:38 AM Marissa Ohara RN - 12/04/2019 12:04 AM EDTIf wound was present on admission, this documentation was sent to attending provider for cosignature. documented in this encounter Plan of Treatment Name Type Priority Associated Diagnoses Date/Time Wound culture Microbiology Routine 12/03/2019 11:22 PM EDT Name Type Priority Associated Diagnoses Order Schedule Basic Metabolic Panel Lab Routine AM Draw for 3 Days starting 12/04/2019 until 12/06/2019, 2 completed Magnesium Level Lab Routine AM Draw for 30 Days starting 12/04/2019 until 01/02/2020, 2 completed CBC Lab Routine AM Draw for 30 Days starting 12/04/2019 until 01/02/2020, 2 completed Sodium, urine, random Lab Routine Once for 1 Occurrences starting 12/04/2019 until 12/04/2019 Creatinine, urine, random Lab Routine Once for 1 Occurrences starting 12/04/2019 until 12/04/2019 Phosphorus Level Lab Routine AM Draw for 30 Days starting 12/04/2019 until 01/02/2020, 2 completed Health Maintenance Due Date Last Done Comments MMR Vaccines (1 of 1 - Standard 11/20/1951 series) Varicella Vaccines (1 of 2 - 11/20/1951 2-dose childhood series) DTaP,Tdap,and Td Vaccines (1 - 11/20/1958 Tdap) Colon Cancer Screening 10 yrs 11/20/2001 Zoster Vaccines (1 of 2) 11/20/2001 Pneumococcal Vaccine: 65+ Years (1 11/20/2016 of 2 - PCV13) Influenza Vaccine 06/06/2019 Hepatitis C Screening (B. Completed 12/03/[id number]) HIB Vaccines Aged Out No longer eligible based on patient's age to complete this topic Hepatitis A Vaccines Aged Out No longer eligible based on patient's age to complete this topic Hepatitis B Vaccines Aged Out No longer eligible based on patient's age to complete this topic IPV Vaccines Aged Out No longer eligible based on patient's age to complete this topic Pneumococcal Vaccine: Pediatrics Aged Out No longer eligible based on (0 to 5 Years) and At-Risk patient's age to complete Patients (6 to 64 Years) this topic documented as of this encounter Procedures Procedure Name Priority Date/Time Associated Comments Diagnosis EKG 12-LEAD - CMAXX 12/05/2019 11:36 REPORT AM EDT EKG 12-LEAD - CMAXX 12/05/2019 11:36 REPORT AM EDT EKG 12-LEAD STAT 12/05/2019 11:36 Results for this AM EDT procedure are in the results section. CBC Routine 12/05/2019 3:24 Results for this AM EDT procedure are in the results section. PHOSPHORUS LEVEL Routine 12/05/2019 3:24 Results for this AM EDT procedure are in the results section. MAGNESIUM LEVEL Routine 12/05/2019 3:24 Results for this AM EDT procedure are in the results section. BASIC METABOLIC PANEL Routine 12/05/2019 3:24 Results for this AM EDT procedure are in the results section. HIV AG AB COMBO SCREEN Routine 12/04/2019 6:37 Results for this AM EDT procedure are in the results section. HEPATITIS B SURFACE Routine 12/04/2019 6:37 Results for this ANTIGEN AM EDT procedure are in the results section. CBC Routine 12/04/2019 6:37 Results for this AM EDT procedure are in the results section. PHOSPHORUS LEVEL Routine 12/04/2019 6:37 Results for this AM EDT procedure are in the results section. MAGNESIUM LEVEL Routine 12/04/2019 6:37 Results for this AM EDT procedure are in the results section. BASIC METABOLIC PANEL Routine 12/04/2019 6:37 Results for this AM EDT procedure are in the results section. XR CHEST FRONTAL ONLY Routine 12/04/2019 1:01 Results for this [address] AM EDT procedure are in the results section. CALCIUM, IONIZED Routine 12/04/2019 12:49 Results for this AM EDT procedure are in the results section. SODIUM, URINE, RANDOM Routine 12/04/2019 12:37 Results for this AM EDT procedure are in the results section. CREATININE, URINE, Routine 12/04/2019 12:37 Results for this RANDOM AM EDT procedure are in the results section. URINALYSIS WITH STAT 12/04/2019 12:37 Results for this MICROSCOPIC AM EDT procedure are in the results section. HEPATITIS C ANTIBODY Routine 12/03/2019 11:55 Results for this PM EDT procedure are in the results section. PROTIME INR Routine 12/03/2019 11:55 Results for this PM EDT procedure are in the results section. PHOSPHORUS LEVEL Timed 12/03/2019 11:55 Results for this PM EDT procedure are in the results section. POCT GLUCOSE, DOCKED Routine 12/03/2019 11:36 Results for this PM EDT procedure are in the results section. URINALYSIS WITH Routine 12/03/2019 11:19 Results for this MICROSCOPIC PM EDT procedure are in the results section. EKG ED PHYSICIAN Routine 12/03/2019 10:25 Results for this INTERPRETATION PM EDT procedure are in the results section. EKG 12-LEAD - CMAXX 12/03/2019 10:20 REPORT PM EDT EKG 12-LEAD - CMAXX 12/03/2019 10:20 REPORT PM EDT EKG 12-LEAD STAT 12/03/2019 10:20 Results for this PM EDT procedure are in the results section. CBC AND DIFFERENTIAL STAT 12/03/2019 10:15 Results for this PM EDT procedure are in the results section. COMPREHENSIVE METABOLIC STAT 12/03/2019 10:15 Results for this PANEL PM EDT procedure are in the results section. documented in this encounter Results EKG 12-LEAD - CMAXX REPORT (12/05/2019 11:36 AM EDT) Narrative Performed At EKG 12-LEAD - CMAXX REPORT (12/05/2019 11:36 AM EDT) Narrative Performed At EKG 12 Lead (12/05/2019 11:36 AM EDT) Specimen Narrative Performed At Ventricular Rate: [facility] EKG 97 BPM Atrial Rate: 340 BPM QRS Duration: 100 ms Q-T Interval: 358 ms QTC Calculation(Bazett): 454 ms R [place]: -12 degrees T [place]: 23 degrees : ATRIAL FIBRILLATION : ABNORMAL ECG : WHEN COMPARED WITH ECG OF 03-DEC-2019 22:20, : NO SIGNIFICANT CHANGE WAS FOUND : Confirmed by MD CARLOS DANIEL ([id number]) on 12/05/2019 12:01:03 : PM Procedure Note Interface, Received Via [employer] - 12/05/2019 12:01 PM EDT Ventricular Rate: 97 BPM Atrial Rate: 340 BPM QRS Duration: 100 ms Q-T Interval: 358 ms QTC Calculation(Bazett): 454 ms R [place]: -12 degrees [place]: 23 degrees : ATRIAL FIBRILLATION : ABNORMAL ECG : WHEN COMPARED WITH ECG OF 03-DEC-2019 22:20, : NO SIGNIFICANT CHANGE WAS FOUND : Confirmed by MD CARLOS DANIEL ([id number]) on 12/05/2019 12:01:03 : PM Performing Organization Address City/State/Zipcode Phone Number [facility] EKG Phosphorus Level (12/05/2019 3:24 AM EDT) Phosphorus 3.1 2.5 - 4.5 mg/dL [facility]ICAL [facility]OLOGY Specimen Plasma Performing Organization Address [facility] Phone Number [facility] PATHOLOGY [address] [place] [address] CBC (12/05/2019 3:24 AM EDT) White Blood Cell 17.2 (H) 4 - 10 10*3/uL [facility] Clin Pathology Red Blood Cell 5.20 4.6 - 6.1 [facility] 10*6/uL [facility] Clin Pathology Hemoglobin 14.4 13.5 - 18 g/dL [facility] Clin Pathology Hematocrit 43.2 41 - 53 % [facility] Clin Pathology Mean Cell Volume 83.0 80 - 96 fL [facility] Clin Pathology Mean Cell Hemoglobin 27.7 27 - 33 pg [facility] Clin Pathology Mean Cell Hgb Conc 33.3 32.0 - 36.0 [facility] g/dL [facility] Pathology Red Cell Dist Width 14.3 11.5 - 14.5 % [facility] Pathology Platelet Count 294 150 - 400 [facility] 10*3/uL [facility] Pathology Specimen EDTA Whole Blood Performing Organization Address [facility] Phone Number [facility] PATHOLOGY [address] [place] [address] [facility] Clin [address] [place] [address] Pathology Magnesium Level (12/05/2019 3:24 AM EDT) Magnesium 2.3 1.6 - 2.4 mg/dL [facility] PATHOLOGY Specimen Plasma Performing Organization Address City/[facility] Phone Number [facility] PATHOLOGY [address] [place] [address] Basic Metabolic Panel (12/05/2019 3:24 AM EDT) Bicarbonate 21 (L) 22 - 29 mmol/L [facility] PATHOLOGY Chloride 103 98 - 107 mmol/L [facility] PATHOLOGY Creatinine 0.96 0.70 - 1.20 [facility] mg/dL CLINICAL PATHOLOGY Glucose 179 (H) 70 - 140 mg/dL [facility] PATHOLOGY Potassium 3.6 3.4 - 5.1 [facility] mmol/L CLINICAL PATHOLOGY Sodium 138 136 - 145 [facility] mmol/L CLINICAL PATHOLOGY Blood Urea Nitrogen 36 (H) 8 - 23 mg/dL [facility] CLINICAL PATHOLOGY Anion Gap 15 8 - 15 mmol/L [facility] CLINICAL PATHOLOGY Osmolality, Alfred 299 275 - 300 [facility] mosm/kg CLINICAL PATHOLOGY BUN/Cre Ratio 37 [facility] CLINICAL PATHOLOGY Calcium 8.6 (L) 8.8 - 10.2 [facility] mg/dL CLINICAL PATHOLOGY GFR Non 83 >60 [facility] Greek 2008 CDK-EPI mL/min/1.73m2 CLINICAL PATHOLOGY GFR >90 >60 [facility] 2009 CKD-EPI mL/min/1.73m2 CLINICAL PATHOLOGY Specimen Plasma Performing Organization Address [facility] Phone Number [facility] PATHOLOGY [address] [place] [address] Hepatitis B surface antigen (12/04/2019 6:37 AM EDT) Hepatitis B Non Non Reactive [facility] Surface Ag ReactiveComment: No CLINICAL active or previous PATHOLOGY infection. Susceptible to infection. Specimen Serum Performing Organization Address [facility] Phone Number [facility] PATHOLOGY [address] [place] [address] [phone] HIV Ag Ab Combo Screen (12/04/2019 6:37 AM EDT) HIV Ag Ab Combo Non Reactive Non Reactive [facility] Screen Comment: Univ Clin Negative for HIV-1 p24 antigen Pathology and HIV-1/HIV-2 antibodies. No laboratory evidence of HIV infection. Specimen Serum Performing Organization Address [facility] Phone Number [facility] CLINICAL PATHOLOGY [address] [place] [address] [phone] [facility] Univ Clin [address] [place] [address] Pathology Phosphorus Level (12/04/2019 6:37 AM EDT) Phosphorus 3.1 2.5 - 4.5 mg/dL [facility] PATHOLOGY Specimen Plasma Performing Organization Address [facility] Phone Number [facility] PATHOLOGY [address] [place] [address] [phone] CBC (12/04/2019 6:37 AM EDT) White Blood Cell 14.1 (H) 4 - 10 10*3/uL [facility] Clin Pathology Red Blood Cell 4.86 4.6 - 6.1 [facility] 10*6/uL [facility] Clin Pathology Hemoglobin 13.4 (L) 13.5 - 18 g/dL [facility] Pathology Hematocrit 40.3 (L) 41 - 53 % [facility] Pathology Mean Cell Volume 82.8 80 - 96 fL [facility] Clin Pathology Mean Cell Hemoglobin 27.5 27 - 33 pg [facility] Clin Pathology Mean Cell Hgb Conc 33.3 32.0 - 36.0 [facility] g/dL [facility] Pathology Red Cell Dist Width 14.5 11.5 - 14.5 % [facility] Pathology Platelet Count 222 150 - 400 [facility] 10*3/uL [facility] Pathology Specimen EDTA Whole Blood Performing Organization Address City/[facility] Phone Number [facility] PATHOLOGY [address] [place] [address] [facility] Clin [address] [place] [address] Pathology Magnesium Level (12/04/2019 6:37 AM EDT) Magnesium 2.1 1.6 - 2.4 mg/dL [facility] PATHOLOGY Specimen Plasma Performing Organization Address City/[facility] Phone Number [facility] PATHOLOGY [address] [place] [address] Basic Metabolic Panel (12/04/2019 6:37 AM EDT) Bicarbonate 20 (L) 22 - 29 mmol/L [facility] PATHOLOGY Chloride 101 98 - 107 mmol/L [facility] PATHOLOGY Creatinine 1.09 0.70 - 1.20 [facility] mg/dL CLINICAL PATHOLOGY Glucose 161 (H) 70 - 140 mg/dL [facility] PATHOLOGY Potassium 4.4 3.4 - 5.1 [facility] mmol/L CLINICAL PATHOLOGY Sodium 135 (L) 136 - 145 [facility] mmol/L CLINICAL PATHOLOGY Blood Urea Nitrogen 34 (H) 8 - 23 mg/dL [facility] PATHOLOGY Anion Gap 14 8 - 15 mmol/L [facility] PATHOLOGY Osmolality, Alfred 291 275 - 300 [facility] mosm/kg CLINICAL PATHOLOGY BUN/Cre Ratio 31 [facility] PATHOLOGY Calcium 8.1 (L) 8.8 - 10.2 [facility] mg/dL CLINICAL PATHOLOGY GFR Non 68 >60 [facility] Greek 2009 CDK-EPI mL/min/1.73m2 CLINICAL PATHOLOGY GFR 79 >60 [facility] 2009 CKD-EPI mL/min/1.73m2 CLINICAL PATHOLOGY Specimen Plasma Performing Organization Address City/State/Zipcode Phone Number [facility] CLINICAL PATHOLOGY [address] [place] [address] XR Chest Frontal Only (12/04/2019 1:01 AM EDT) Specimen Narrative Performed At PROCEDURE INFORMATION: [facility] RADIOLOGY Exam: XR Chest, 1 View Exam date and time: 12/04/2019 12:50 AM Age: 69 years old Clinical indication: Other: Evaluate for pneumonia or pulmonary edema TECHNIQUE: Imaging protocol: XR of the chest Views: 1 view. COMPARISON: No relevant prior studies available. FINDINGS: Lungs: There is prominence of the pulmonary interstitium in the lower lungs. Pleural space: Unremarkable. No pleural effusion. No pneumothorax. Heart/Mediastinum: Unremarkable. No cardiomegaly. Bones/joints: There are degenerative changes in the spine. IMPRESSION: Prominence of the pulmonary interstitium in the lower lungs which may be due to vascular congestion. Pneumonia is not ruled out. THIS DOCUMENT HAS BEEN ELECTRONICALLY SIGNED BY SHAHZAD OTT MD Procedure Note Interface, Received Via [employer] - 12/04/2019 2:43 AM EDT PROCEDURE INFORMATION: Exam: XR Chest, 1 View Exam date and time: 12/04/2019 12:50 AM Age: 69 years old Clinical indication: Other: Evaluate for pneumonia or pulmonary edema TECHNIQUE: Imaging protocol: XR of the chest Views: 1 view. COMPARISON: No relevant prior studies available. FINDINGS: Lungs: There is prominence of the pulmonary interstitium in the lower lungs. Pleural space: Unremarkable. No pleural effusion. No pneumothorax. Heart/Mediastinum: Unremarkable. No cardiomegaly. Bones/joints: There are degenerative changes in the spine. IMPRESSION: Prominence of the pulmonary interstitium in the lower lungs which may be due to vascular congestion. Pneumonia is not ruled out. THIS DOCUMENT HAS BEEN ELECTRONICALLY SIGNED BY SHAHZAD OTT MD Performing Organization Address City/[facility]/Zipcode Phone Number [facility] RADIOLOGY [address] [place] [address] Calcium, ionized (12/04/2019 12:49 AM EDT) Calcium Ionized,W.B. 0.97 (L) 1.13 - 1.32 [facility] mmol/L Univ Clin Pathology Specimen Whole Blood Performing Organization Address [facility] Phone Number [facility] PATHOLOGY [address] [place] [address] [phone] [facility] Clin [address] [place] [address] Pathology Sodium, urine, random (12/04/2019 12:37 AM EDT) Urine, Sodium 27Comment: Confirmed mmol/L [facility] PATHOLOGY Specimen Urine Performing Organization Address [facility] Phone Number [address] [address] [phone] Creatinine, urine, random (12/04/2019 12:37 AM EDT) Creatinine, Urine 177.0 mg/dl [facility] PATHOLOGY Specimen Urine Performing Organization Address [facility] Phone Number [facility] PATHOLOGY [address] [place] [address] Urinalysis with microscopic (12/04/2019 12:37 AM EDT) Color Yellow [facility] Clin Pathology Clarity Clear [facility] Clin Pathology Specific [place] 1.048 (H) 1.003 - 1.030 [facility] Clin Pathology PH Urine 5.0 5.0 - 8.0 [facility] Pathology Total Protein UA 100 (A) Negative mg/dL [facility] Univ Clin Pathology Glucose UA Negative Negative mg/dL [facility] Pathology Ketone Urine 20 (A) Negative mg/dL [facility] Pathology Bilirubin Negative Negative [facility] Pathology Hemoglobin, Urine 1+ (A) Negative [facility] Pathology Leukocyte Esterase Negative Negative [place]/uL [facility] Clin Pathology Nitrite Negative Negative [facility] Clin Pathology WBC 2 0 - 5 /HPF [facility] Clin Pathology RBC 4 (H) 0 - 3 /HPF [facility] Clin Pathology Specimen Urine Performing Organization Address [facility] Phone Number [facility] PATHOLOGY [address] [place] [address] [facility] Clin [address] [place] [address] Pathology Phosphorus Level (12/03/2019 11:55 PM EDT) Phosphorus 2.5 2.5 - 4.5 mg/dL [facility] PATHOLOGY Specimen Plasma Performing Organization Address [facility] Phone Number [facility] PATHOLOGY [address] [place] [address] [phone] Hepatitis C antibody (12/03/2019 11:55 PM EDT) Pathologist [facility] Hepatitis C Ab Non ReactiveComment: Non Reactive [facility] No serological CLINICAL PATHOLOGY evidence of active infection. If recent exposure is suspected, test for HCV RNA. Specimen Serum Performing Organization Address [facility] Phone Number [facility] PATHOLOGY [address] [place] [address] Protime-INR (12/03/2019 11:55 PM EDT) Pathologist [facility] PT Patient 16.5 (H) 12.5 - 14.9 [facility] Clin Pathology Int'l Normalized 1.31Comment: Routine [facility] intensity oral [facility] Clin anticoagulation INR is Pathology typically 2.0-3.0. Target INR must be clinically individualized. Specimen Plasma Performing Organization Address [facility] Phone Number [facility] CLINICAL PATHOLOGY [address] [place] [address] [facility] Clin [address] [place] [address] Pathology POCT glucose, docked (12/03/2019 11:36 PM EDT) POC Glucose 132 70 - 140 mg/dL [facility] POC Specimen Whole Blood Performing Organization Address [facility] Phone Number POINT OF CARE TEST [address] [place] [address] [facility] POC [address] [place] [address] Urinalysis with microscopic (12/03/2019 11:19 PM EDT) Color Yellow [facility] Clin Pathology Clarity Clear [facility] Pathology Specific [place] 1.057 (H) 1.003 - 1.030 [facility] Pathology PH Urine 5.0 5.0 - 8.0 [facility] Clin Pathology Total Protein UA 30 (A) Negative mg/dL [facility] Clin Pathology Glucose UA Negative Negative mg/dL [facility] Pathology Ketone Urine 20 (A) Negative mg/dL [facility] Clin Pathology Bilirubin Negative Negative [facility] Clin Pathology Hemoglobin, Urine 1+ (A) Negative [facility] Clin Pathology Leukocyte Esterase Negative Negative [place]/uL [facility] Clin Pathology Nitrite Negative Negative [facility] Clin Pathology WBC 1 0 - 5 /HPF [facility] Clin Pathology RBC 7 (H) 0 - 3 /HPF [facility] Clin Pathology Squam Epithel, UA 1 (A) None /HPF [facility] Pathology Mucus, UA 1+ (A) None /LPF [facility] Pathology Hyaline Cast 2 (A) None /LPF [facility] Clin Pathology Specimen Urine Performing Organization Address [facility] Phone Number [facility] CLINICAL PATHOLOGY [address] [place] [address] [facility] Clin [address] [place] [address] Pathology 1ED EKG Interpretation (12/03/2019 10:25 PM EDT) Narrative Performed At Torrey Gray MD EXTERNAL NON-INTERFACED LAB 12/03/2019 10:29 PM 1ED EKG Interpretation Date/Time: 12/03/2019 10:28 PM Performed by: Torrey Gray MD Authorized by: Torrey Gray MD ECG reviewed by ED Physician in the absence of a director of annual giving: yes Interpretation: Interpretation: abnormal Rate: ECG rate assessment: tachycardic Rhythm: Rhythm: atrial fibrillation QRS: QRS axis: Left QRS intervals: Normal ST segments: ST segments: Normal T waves: T waves: non-specific Performing Organization Address City/[facility] Phone Number EXTERNAL NON-INTERFACED LAB EKG 12-LEAD - CMAXX REPORT (12/03/2019 10:20 PM EDT) Narrative Performed At EKG 12-LEAD - CMAXX REPORT (12/03/2019 10:20 PM EDT) Narrative Performed At EKG 12 lead (12/03/2019 10:20 PM EDT) Specimen Narrative Performed At Ventricular Rate: [facility] EKG 116 BPM Atrial Rate: 127 BPM QRS Duration: 80 ms Q-T Interval: 344 ms QTC Calculation(Bazett): 478 ms R [place]: -21 degrees T [place]: -14 degrees : ATRIAL FIBRILLATION WITH RAPID VENTRICULAR RESPONSE : NONSPECIFIC ST AND T WAVE ABNORMALITY : ABNORMAL ECG : NO PREVIOUS ECGS AVAILABLE : Confirmed by MD CARLOS DANIEL ([id number]) on 12/04/2019 8:56:58 : AM Procedure Note Interface, Received Via [employer] - 12/04/2019 8:57 AM EDT Ventricular Rate: 116 BPM Atrial Rate: 127 BPM QRS Duration: 80 ms Q-T Interval: 344 ms QTC Calculation(Bazett): 478 ms R [place]: -21 degrees [place]: -14 degrees : ATRIAL FIBRILLATION WITH RAPID VENTRICULAR RESPONSE : NONSPECIFIC ST AND T WAVE ABNORMALITY : ABNORMAL ECG : NO PREVIOUS ECGS AVAILABLE : Confirmed by MD CARLOS DANIEL ([id number]) on 12/04/2019 8:56:58 : AM Performing Organization Address City/State/Zipcode Phone Number [facility] EKG CBC and Differential (12/03/2019 10:15 PM EDT) White Blood Cell 16.2 (H) 4 - 10 10*3/uL [facility] Clin Pathology Red Blood Cell 5.30 4.6 - 6.1 [facility] 10*6/uL Univ Clin Pathology Hemoglobin 14.7 13.5 - 18 g/dL [facility] Clin Pathology Hematocrit 42.7 41 - 53 % [facility] Pathology Mean Cell Volume 80.5 80 - 96 fL [facility] Clin Pathology Mean Cell Hemoglobin 27.8 27 - 33 pg [facility] Clin Pathology Mean Cell Hgb Conc 34.5 32.0 - 36.0 [facility] g/dL [facility] Clin Pathology Red Cell Dist Width 14.1 11.5 - 14.5 % [facility] Clin Pathology Platelet Count 267 150 - 400 [facility] 10*3/uL Univ Clin Pathology Differential Type Manual Diff [facility] Clin Pathology Neutrophil 84 % [facility] Clin Pathology Lymphocyte 8 % [facility] Univ Clin Pathology Monocyte 8 % [facility] Pathology Abs Neutrophil 13.75 (H) 1.8 - 7.0 [facility] 10*3/uL Univ Clin Pathology Abs Lymphocyte 1.22 1.2 - 4.0 [facility] 10*3/uL Univ Clin Pathology Abs Monocyte 1.22 (H) 0 - 0.8 [facility] 10*3/uL Univ Clin Pathology Macrocytosis 1+ [facility] Pathology Specimen EDTA Whole Blood Performing Organization Address City/State/Zipcode Phone Number [facility] CLINICAL PATHOLOGY [address], [place] [phone] [facility] Univ Clin [address] [place] [address] Pathology Comprehensive Metabolic Panel (12/03/2019 10:15 PM EDT) Albumin 3.5 3.5 - 5.2 g/dL [facility] PATHOLOGY Bilirubin, Total 0.7 <1.2 mg/dL [facility] PATHOLOGY Calcium 8.4 (L) 8.8 - 10.2 [facility] mg/dL CLINICAL PATHOLOGY Chloride 94 (L) 98 - 107 mmol/L [facility] PATHOLOGY Creatinine 1.27 (H) 0.70 - 1.20 [facility] mg/dL CLINICAL PATHOLOGY Glucose 128 70 - 140 mg/dL [facility] PATHOLOGY Alkaline Phosphatase 69 40 - 129 U/L [facility] PATHOLOGY Potassium 3.4 3.4 - 5.1 [facility] mmol/L CLINICAL PATHOLOGY Total Protein 6.8 6.4 - 8.3 g/dL [facility] PATHOLOGY Sodium 133 (L) 136 - 145 [facility] mmol/L CLINICAL PATHOLOGY AST/SGO 49 (H) <40 U/L [facility] PATHOLOGY Blood Urea Nitrogen 38 (H) 8 - 23 mg/dL [facility] PATHOLOGY Osmolality, Alfred 287 275 - 300 [facility] mosm/kg CLINICAL PATHOLOGY BUN/Cre Ratio 30 [facility] PATHOLOGY Bicarbonate 20 (L) 22 - 29 mmol/L [facility] PATHOLOGY ALT/SGP 55 (H) <41 U/L [facility] PATHOLOGY Anion Gap 19 (H) 8 - 15 mmol/L [facility] PATHOLOGY A/G Ratio 1.1 [facility] PATHOLOGY GFR Non 56 (L) >60 [facility] Greek 2008 CDK-EPI mL/min/1.73m2 CLINICAL PATHOLOGY GFR 65 >60 [facility] 2008 CKD-EPI mL/min/1.73m2 CLINICAL PATHOLOGY Specimen Plasma Performing Organization Address City/State/Zipcode Phone Number [facility] CLINICAL PATHOLOGY [address] [place] [address] documented in this encounter Visit Diagnoses Diagnosis Oc's angina - Primary Cellulitis and abscess of oral soft tissues documented in this encounter Administered Medications Medication Order MAR Action Action Date Dose Rate Site ampicillin-sulbactam (UNASYN) New 12/05/2019 5:54 AM EDT 3 g 200 mL/ hr 3 g in sodium chloride 0.9 % 100 mL IVPB 3 g, Intravenous, at 200 mL/hr, Every 6 hours, First dose on Wed12/04/19 at 0000, For 7 days, Dose based on mg of Unasyn. Each 150 mg of Unasyn contains 100 mg ampicillin., Discouraged Uses: Empiric treatment of intra-abdominal infection, Restarted - All Meds 12/05/2019 12:12 AM EDT 200 mL/hr Rate/Dose Verify 12/05/2019 12:11 AM EDT 200 mL/hr dexamethasone (DECADRON) injection 8 mg New 12/05/2019 3:16 AM EDT 8 mg 8 mg, Intravenous, Every 8 hours, First dose on Wed12/04/19 at 0415, For 30 days 12/04/2019 8:10 PM EDT 8 mg Given by IV push 12/04/2019 12:03 PM EDT 8 mg enoxaparin sodium (LOVENOX) injection 40 mg Given 12/05/2019 8:21 AM EDT 40 mg 40 mg, Subcutaneous, Daily Standard, First dose on Wed12/05/19 at 0900, For 30 days fentaNYL (SUBLIMAZE) (PF) Given by IV push 12/04/2019 6:56 AM EDT 25 mcg injection 25 mcg 25 mcg, Intravenous, Every 4 hours PRN, Severe Pain (Pain Scale Score 7-10), Starting Wed12/03/19 at 2311, For 3 days Given by IV push 12/04/2019 3:23 AM EDT 25 mcg hydrochlorothiazide (HYDRODIURIL) tablet 25 Given 12/05/2019 8:21 AM EDT 25 mg mg 25 mg, Oral, Daily Standard, First dose on Wed12/04/19 at 0900, For 30 days Given 12/04/2019 8:27 AM EDT 25 mg metoprolol (LOPRESSOR) tablet 50 mg Given 12/05/2019 8:21 AM EDT 50 mg 50 mg, Oral, 2 Times Daily, First dose (after last modification) on Wed12/04/19 at 1230, For 5 days Given 12/04/2019 8:10 PM EDT 50 mg Medication Order MAR Action Action Date Dose Rate Site heparin (porcine) 5000 Given 12/04/2019 8:27 AM EDT 5,000 Units UNIT/ML injection 5,000 Units 5,000 Units, Subcutaneous, 2 Times Daily, First dose on Wed12/04/19 at 0900, For 30 days methylPREDNISolone sodium succinate New Bag 12/03/2019 10:47 PM EDT 125 mg (SOLU-MEDROL) injection 125 mg 125 mg, Intravenous, Once, [place] 12/03/19 at 2230, For 1 dose metoprolol tartrate (LOPRESSOR) tablet 25 mg Given 12/04/2019 8:27 AM EDT 25 mg 25 mg, Oral, 2 Times Daily, First dose (after last modification) on Wed12/04/19 at 0900, For 30 days metoprolol tartrate (LOPRESSOR) tablet 25 mg Given 12/04/2019 1:36 PM EDT 25 mg 25 mg, Oral, Once, Wed12/04/19 at 1345, For 1 dose NaCl infusion 0.9 % Rate/Dose Verify 12/04/2019 2:00 PM EDT 75 mL/hr at 75 mL/hr, Intravenous, Continuous, Starting Wed12/04/19 at 0000, For 2 days Rate/Dose Verify 12/04/2019 1:00 PM EDT 75 mL/hr Rate/Dose Verify 12/04/2019 12:00 PM EDT 75 mL/hr potassium chloride 10 mEq in 50 mL New Bag 12/04/2019 4:04 AM EDT 10 mEq 50 mL/hr IVPB (premix) 10 mEq, Intravenous, Administer over 60 Minutes, Once, [facility] 12/04/19 at 0315, For 1 dose sodium chloride 0.9 % bolus New Bag 12/03/2019 10:03 PM EDT 1,000 mLs 999 mL/hr 1,000 mL 1,000 mL, Intravenous, Once, [place] 12/03/19 at 2215, For 1 dose sodium chloride 0.9 % bolus New Bag 12/03/2019 11:19 PM EDT 1,000 mLs 999 mL/hr 1,000 mL 1,000 mL, Intravenous, Once, 12/03/19 at 2215, For 1 dose documented in this encounter
--- NOTE | 2019-12-27 21:30 | ED ---
Palpitations / Dysrhythmia - HPI Summary HPI Summary: 69-year-old male presenting to [facility] with a chief complaint of irregular heart rate today. He was recently diagnosed with atrial fibrillation three weeks ago after initially having an infected tooth subsequently resulting in [place] angina evaluated at [facility] with continued irregular heart rate since then. He has not been able to follow up with anyone at this point to address the afib. Tonight, he felt a pounding in the chest while sitting at rest. He describes the sensation of room closing in, fast heart rate, accompanied by mild nausea. He measured his heart rate using a monitor at home and found it to be elevated. He denies any SOB, CP, diaphoresis, fevers, or chills. He is not in any pain now. Currently on ASA, Lopressor, Ramipril, Hydrochlorothiazide. Occupational Rehabilitation Aide is Dr. Jenkins. Last stress test in September 2018. Last echo in 2005. Past medical history includes hypertension, sleep apnea. Former smoker. No current alcohol use. No substance use. Medications reviewed. Allergies noted. - History of Current Complaint Chief Complaint: EDDysrhythmPalp Time Seen by Provider: 12/27/19 21:13 Hx Obtained From: Patient Onset/Duration: Sudden Onset Severity Initially: Moderate Severity Currently: Mild Character: Pounding Aggravating: Nothing Alleviating: Nothing Associated Signs & Symptoms: Nausea - mild - Allergy/Home Medications Allergies/Adverse Reactions: Allergies Allergy/AdvReac Type Severity Reaction Status Date / Time niacin Allergy Unknown Unknown Verified 12/27/19 19:30 Reaction Details ibuprofen Allergy See Comment Verified 12/27/19 19:30 Home Medications: Home Medications Acetaminophen [Non-Aspirin] 20 ml PO Q6HR PRN 12/27/19 [History Confirmed ] Aspirin EC TAB* [Ecotrin EC Low Dose 81 MG*] 81 mg PO DAILY 12/27/19 [History Confirmed 12/28/19] Hydrochlorothiazide TAB* [Hydrodiuril TAB*] 25 mg PO DAILY 12/27/19 [History Confirmed 12/28/19] Metoprolol Tartrate TAB* [Lopressor TAB*] 50 mg PO BID 12/27/19 [History Confirmed 12/28/19] Multivitamins/Minerals TAB* [Theragran/minerals TAB*] 1 tab PO DAILY 12/27/19 [ History Confirmed 12/28/19] Ramipril CAP* [Altace CAP*] 10 mg PO DAILY 12/27/19 [History Confirmed 12/28/19] traMADol TAB* [Ultram*] 50 - 100 mg PO Q6HR PRN 12/27/19 [History Confirmed ] Atorvastatin* [Lipitor*] 10 mg PO DAILY 12/28/19 [History Confirmed 12/28/19] PMH/Surg Hx/FS Hx/Imm Hx Endocrine/Hematology History: Denies: Hx Diabetes Cardiovascular History: Reports: Hx Angina, Hx Atrial Fibrillation, Hx Hypertension, Other Cardiovascular Problems/Disorders Denies: Hx Coronary Artery Disease, Hx Hypercholesterolemia, Hx Myocardial Infarction, Hx Valvular Heart Disease Respiratory History: Reports: Hx Sleep Apnea Denies: Hx Asthma, Hx Chronic Obstructive Pulmonary Disease (COPD) GI History: Reports: Other GI Disorders - Obesity Sensory History: Reports: Hx Contacts or Glasses Opthamlomology History: Reports: Hx Contacts or Glasses EENT History: Reports: Other - Oc's angina - Surgical History Surgical History: Yes Surgery Procedure, Year, and Place: T&A, dental work - Immunization History Date of Tetanus Vaccine: Unk Date of Influenza Vaccine: Fall 2012 Infectious Disease History: No Infectious Disease History: Denies: Traveled Outside the [place] in Last 30 Days - Family History Known Family History: Positive: Hypertension, Other - Alzheimer's - Social History Alcohol Use: None Alcohol Amount: quit 3 wks ago Hx Substance Use: No Substance Use Type: Reports: None Hx Tobacco Use: Yes - QUIT 2008 Smoking Status (MU): Former Smoker Type: Cigarettes Amount Used/How Often: 1 ppd Length of Time of Smoking/Using Tobacco: 30 years Have You Smoked in the Last Year: No - Additional Comments History Additional Comments: atrial fibrillation, hypertension, Oc's angina, T&A Review of Systems - ROS Summary Review of Systems Summary: Home Medications Medication Instructions Recorded Confirmed Type Aspirin [Aspir 81] 81 mg PO DAILY 06/21/12 09/14/18 History Multivitamin [Multivitamins] 1 cap PO DAILY 06/21/12 09/14/18 History Ramipril 10 mg PO BEDTIME 06/21/12 09/14/18 History Tramadol HCl 50 mg PO Q6H PRN 06/21/12 09/14/18 History Hydrochlorothiazide 25 mg PO DAILY 06/24/12 09/14/18 History Metoprolol Tartrate TAB* 25 mg PO TID 12/30/13 09/14/18 History [Lopressor TAB*] Negative: Fever, Chills, Skin Diaphoresis Positive: Palpitations - pounding. Negative: Chest Pain Negative: Shortness Of Breath Positive: Nausea - mild All Other Systems Reviewed And Are Negative: Yes Physical Exam - Summary Physical Exam Summary: General: Well-developed, Obese male. Mildly anxious appearing. No acute distress. HEENT: Normocephalic, Atraumatic. Eyes: Conjuctiva normal, PERRL. Oropharynx: Clear, mucous membranes moist, (-) exudates. Neck: Soft, FROM, (-) lymphadenopathy, (-) thyromegaly, (-) JVD. Cardiovascular: Irregularly irregular rate, (-) murmur. Lungs: Clear to auscultation bilaterally (-) wheezes, (-) rales, (-) rhonchi. Abdomen: Soft, non-tender, non-distended, (-) organomegaly, normal bowel sounds. Back: (-) CVA tenderness Extremities: 1+ lower extremity edema. Skin: Warm, dry, (-) rash. Neuro: Alert and oriented x3, moves all extremities equally. No ataxia. No gait disturbance. No sensory deficit. Normal strength, normal sensation. Psychiatric: Mood normal, affect normal. Triage Information Reviewed: Yes Vital Signs On Initial Exam: Initial Vitals Temp Pulse Resp BP Pulse Ox 97.9 F 118 20 167/110 97 12/27/19 19:28 12/27/19 19:28 12/27/19 19:28 12/27/19 19:28 12/27/19 19:28 Vital Signs Reviewed: Yes Procedures - Sedation Patient Received Moderate/Deep Sedation with Procedure: No Diagnostics - Vital Signs Vital Signs Temp Pulse Resp BP Pulse Ox 12/27/19 19:28 97.9 F 118 20 167/110 97 - Laboratory Result Diagrams: 12/27/19 21:30 12/27/19 21:30 Lab Statement: Any lab studies that have been ordered have been reviewed, and results considered in the medical decision making process. - Radiology CXR Radiology Interpretation Completed By: ED Physician Summary of Radiographic Findings: Increased interstitial markings consistent with CHF. This image was reviewed and interpreted by Dr. Dougherty, pending official report. - EKG 1924 Cardiac Rate: Other Rate - 110 BPM EKG Rhythm: Atrial Fibrillation Summary of EKG Findings: EKG at 1924 reveals atrial fibrillation with rate of 110 BPM. This EKG was reviewed and interpreted by Dr. Dougherty. Re-Evaluation - Re-Evaluation First Eval Re-Evaluation Time: 23:15 Comment: I discussed all results and plan for admisison. Patient agreeable. Course/Dx - Course Course Of Treatment: 69-year-old male presents from home with palpitations. He states he was at rest tonight watching TV when suddenly he felt his heart pounding hard and fast out of his chest. He states he took his heart rate at home and it was in the 130s. He has been told he has A. fib. It started 3 weeks ago when he was seen here with Oc's angina. He states he was then transferred for IV antibiotics. Had his infected tooth removed. Was noted to have A. fib at that time but was told that should improve when his infection clears up. He states as far as infection goes he is feeling much better. 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 He is not on any blood thinners. Denies any fevers or chills. No chest pain no shortness of breath. No cough. On physical exam, has elevated blood pressure upon arrival at 168/ 110. Heart rate greater than 110. He is in no apparent distress. Not hypoxic. Bibasilar crackles. 1+ lower extremity edema. Heart rate irregularly irregular. On workup chest x-ray shows fluid overload. Troponin is negative. EKG shows atrial fibrillation. Patient is referred to hospitalist for admission. New-onset atrial fibrillation. CHF. Patient recevied Lasix in the ED course. - Diagnoses Provider Diagnoses: New onset a-fib, CHF (congestive heart failure) - Physician Notifications Discussed Care Of Patient With: Charlene Reeves - hospitalist Time Discussed With Above Provider: 23:10 Instructed by Provider To: Other - I discussed the patients case with Dr. Reeves, who accepts the patient for admission. - Critical Care Time Critical Care Statement: Critical care time is provided exclusive of any time spent performing procedures. Discharge ED - Sign-Out/Discharge Documenting (check all that apply): Patient Departure - Patient accepted for admission by Dr. Reeves. - Discharge Plan Condition: Stable Disposition: ADMITTED TO [facility] - Billing Disposition and Condition Condition: STABLE Disposition: Admitted to [facility] - Attestation Statements Document Initiated by Mai: Yes Documenting Scribe: An Quintanilla Provider For Whom Mai is Documenting (Include Credential): Kaitlin Dougherty MD Scribe Attestation: An Duckworth, scribed for Kaitlin Dougherty MD on 12/28/19 at 0459. Scribe Documentation Reviewed: Yes Provider Attestation: The documentation as recorded by the An palomino accurately reflects the service I personally performed and the decisions made by me, Kaitlin Dougherty MD Status of Scribe Document: Viewed
[2019-12-27 21:52] LABS: ABS Eosinophils 0.2 10^3/ul (0-0.6); ABS Lymphocytes 1.9 10^3/ul (1.0-4.8); ABS Monocytes 0.7 10^3/ul (0-0.8); ABS Neutrophils 4.8 10^3/ul (1.5-7.7); Eosinophil % 3.2 %; Hematocrit 37 % (42-52); Hemoglobin 12.3 g/dL (14.0-18.0); Lymphocyte % 25.3 %; Mean Corpuscular HGB Conc 33 g/dL (31-36); Mean Corpuscular Hemoglobin 28 pg (27-31); Mean Corpuscular Volume 84 fL (80-94); Mean Platelet Volume 8.4 fL (7.4-10.4); Nucleated Red Blood Cells % 0.1; Platelet Count 227 10^3/uL (150-450); Red Blood Count 4.45 10^6 /uL (4.18-5.48); Red Cell Distribution Width 15 % (10-15); White Blood Count 7.7 10^3/uL (3.5-10.8)
[2019-12-27 22:00] LABS: Activated Partial Thrombo Time 42.8 seconds (26.0-38.0); INR 1.14 (0.82-1.09)
[2019-12-27 22:09] LABS: Albumin 4.1 g/dL (3.2-5.2); Albumin/Globulin Ratio 1.4 (1-3); BUN/Creatinine Ratio 22.8 (8-20); Calcium 9.2 mg/dL (8.6-10.3); EGFR African American 70.8 (>60); EGFR Non-African American 58.5 (>60); Magnesium 1.6 mg/dL (1.9-2.7); Potassium 4.4 mmol/L (3.5-5.0); Total Bilirubin 0.9 mg/dL (0.2-1.0); Total Protein 7.1 g/dL (6.4-8.9)
[2019-12-27] MEDS ORDERED: Furosemide IV* 10 MG/ML 10 ML VIAL (100 MG) IV ONE (22:26)
[2019-12-27 22:42] LABS: TSH (Thyroid Stimulating Horm) 2.24 mcIU/mL (0.34-5.60)
[2019-12-28] MEDS ORDERED: traMADol TAB* 50 MG PO PRN (00:44)
[2019-12-28] MEDS ORDERED: Metoprolol Tartrate IV* 1 MG/ML 5 ML VIAL IV ONE (00:45)
[2019-12-28] MEDS ORDERED: Enoxaparin(*) 150 MG/ML 1 ML SYRINGE SUBCUT SCH ×2 (01:00→13:00)
[2019-12-28] MEDS ORDERED: Magnesium Sulfate 2 GM IV* 2 GM/50 ML BAG IVPB ONE (01:21)
[2019-12-28 05:18] LABS: Hepatitis C Antibody Negative (Negative)
--- NOTE | 2019-12-28 06:24 | HP ---
CC: Dr. Liz; Dr. Jenkins* HISTORY AND PHYSICAL: DATE OF ADMISSION: 12/27/19 PRIMARY CARE PROVIDER: Dr. Liz. TILE PROFESSIONAL: Dr. Jenkins. CHIEF COMPLAINT: Irregular heart rate. HISTORY OF PRESENT ILLNESS: Mr. Houser is a 69-year-old male who at the end of November developed Oc's angina. He had drainage of a submandibular abscess and extraction of the culprit tooth performed. When he initially presented to the emergency room for complaints of pain in his jaw, he was found to be in rapid atrial fibrillation. The patient was transferred from [facility] to [facility] for management of the Oc's angina. The patient states that he was informed of being in atrial fibrillation once he arrived at [facility]; he has never been told this in the past. He states that the providers at [facility] increased his metoprolol from 25 mg in the morning to 50 mg in the morning and kept his evening dose 50 mg. He was not started on anticoagulation. The patient notes that since his hospitalization at [facility] he has had occasional palpitations. Earlier on the day of admission, he began to feel quite strange. He checked his vital signs with pulse oximeter and noticed that his heart rate was fluctuating quite significantly. This made him worried. He denied any associated shortness of breath or chest pain at that time. As this was the second time that this happened, he had been unsuccessful in reaching his PCP or occupational physician, he decided to present to the emergency room for evaluation. The patient did not have an echocardiogram at [facility]. He did have an echo a few months ago to evaluate his aorta and he states that the aorta size was reportedly stable and no other findings were identified. PAST MEDICAL HISTORY: 1. Oc's angina, 12/03/19. 2. Hypertension. 3. KATERINE with auto CPAP 13 to 20. PAST SURGICAL HISTORY: 1. Tonsillectomy. 2. Tooth extraction x7 including 4 wisdom teeth. MEDICATIONS: 1. Multivitamin 1 tab p.o. daily. 2. Aspirin 81 mg p.o. daily. 3. Hydrochlorothiazide 25 mg p.o. daily. 4. Metoprolol tartrate 50 mg p.o. b.i.d. 5. Ramipril 10 mg p.o. daily. 6. This is listed as Liquid Tylenol; however, it is unclear if he in fact takes this. 7. Tramadol 50 to 100 mg p.o. q.6 hours p.r.n. pain. ALLERGIES: IBUPROFEN and NIACIN. FAMILY HISTORY: Mom at the age of 85 with complications from Alzheimer's. Dad at the age of 87 of kidney problem. SOCIAL HISTORY: The patient is a former smoker, quit in 2008. He had a 27- pack year history of smoking. He has not been drinking since the middle of November. He had been drinking approximately 1 drink per day. 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 He is . He has no children. He indicates that his sisters, Belle and Oumou, would be his healthcare proxies. REVIEW OF SYSTEMS: A complete 11-system review of systems was obtained. Pertinent positives and negatives are as per HPI, and in addition, the patient does note that he has had lower extremity edema over the last 3 days. He has been constipated due to taking tramadol and he has been more anxious recently. PHYSICAL EXAMINATION GENERAL: The patient is a well-developed, morbidly obese, middle-aged male, seen sitting up in the stretcher, in no acute distress. VITAL SIGNS: Blood pressure 158/89, pulse 104, respirations 22, temp 98.3, O2 sat 97% on room air. HEENT: Pupils are equal. Extraocular muscles are intact. Oropharynx is clear and moist. NECK: There is no submandibular, cervical, or supraclavicular adenopathy. There is questionable mild swelling under the right side of the mandible. PULMONARY: Lungs are clear bilaterally. CARDIAC: Normal S1 and S2. Heart rate is irregularly irregular. Heart sounds are distant. ABDOMEN: Bowel sounds are present. Abdomen is obese, soft, nontender, and nondistended. MUSCULOSKELETAL: The patient moves all 4 extremities symmetrically. NEUROLOGIC: Cranial nerves II through XII are grossly intact. Sensation is intact to light touch throughout. Strength is 5/5 and symmetric in both upper and lower extremities bilaterally. PSYCH: The patient is alert. He is oriented x3. Affect appears appropriate. SKIN: Visible areas of skin are warm, dry, and without rash. DIAGNOSTIC STUDIES/LAB DATA: WBC 7.7, hemoglobin 12.3, hematocrit 37, and platelets 227. INR 1.14. Sodium 140, potassium 4.4, chloride 102, CO2 of 31, BUN 28, creatinine 1.23, glucose 103, lactic acid 1, calcium 9.2, magnesium 1.6. Bilirubin 0.9, AST 16, ALT 18, alk phos 75. Troponin 0. BNP 227. Albumin 4.1. TSH 2.24. EKG: Atrial fib/flutter with no acute ST-T wave abnormalities. Chest x-ray to my interpretation reveals possible cephalization of the vessels indicating pulmonary vascular congestion. ASSESSMENT AND PLAN: Mr. Houser is a 69-year-old male with history of hypertension and obstructive sleep apnea, who was recently treated for Oc's angina at the end of November, who presents to the emergency room with complaints of irregular heart rate. 1. Atrial fibrillation with rapid ventricular response. The patient's heart rate has been mildly elevated in the low 100s. He was worried at home because there was significant variability in the heart rate. He was found initially to be in atrial fibrillation at the end of November. He has not had an echocardiogram since his diagnosis. The patient will be admitted under observation status. Transthoracic echocardiogram has been ordered. The patient 's heart rate generally has been fluctuating between the 90s and low 100s. I will increase his metoprolol tartrate to 75 mg twice daily and in the interim he will get 5 mg of IV metoprolol now. The patient's CHADS-VASc score is 2, 1 for age and 1 for hypertension. This would indicate that he would benefit from full anticoagulation. For now, I am going to start Lovenox full strength; this is 150 mg twice daily. Discussion will need to be had later about which oral anticoagulant he would like to use for stroke prevention. 2. Hypertension. The patient's blood pressure is mildly elevated. I am increasing his metoprolol tartrate. As he has had IV Lasix in the emergency room, I am going to hold off on the hydrochlorothiazide. He may benefit from ongoing Lasix administration. Additionally, he will continue on his usual dose of ramipril. 3. Obstructive sleep apnea. The patient utilizes CPAP with sleep. He uses an auto CPAP. This will be ordered. 4. Stage 3 chronic kidney disease. The patient's creatinine is elevated at 1.23. This is improved from the end of November. However, we do not have a recent creatinine to compare to. This will be monitored. 5. Anemia. The patient is mildly anemic. He has intermittently been anemic in the past, though this is the lowest he has been. Perhaps, this was related to his recent episode of Oc's angina. This can be followed. 6. DVT prophylaxis. According to the Adult Thrombosis Prophylaxis Risk Factor Assessment Guide, the patient has a total risk factor score of 3 making him the high risk. Full-dose Lovenox will be utilized as DVT prophylaxis. 7. Code status is full. TIME SPENT: Sixty-five minutes was spent admitting this patient. [id number]/[facility] #: [id number] [facility]
[2019-12-28] MEDS ORDERED: Perflutren Lipid Microsphere* 3 ML VIAL ONE ×2 (08:13→08:25)
[2019-12-28] MEDS: Multivitamins/Minerals TAB PO SCH (08:54)
[2019-12-28] MEDS ORDERED: Aspirin EC TAB* 81 MG TAB.EC PO SCH ×2 (09:00)
[2019-12-28] MEDS ORDERED: Ramipril CAP* 10 MG PO SCH ×2 (09:00)
[2019-12-28] MEDS ORDERED: Metoprolol Tartrate TAB* 25 MG PO SCH ×2 (09:00)
[2019-12-28] MEDS ORDERED: Multivitamins/Minerals TAB PO SCH (09:00)
[2019-12-28] MEDS ORDERED: Apixaban* 5 MG TAB PO SCH ×2 (09:00→12:00)
--- NOTE | 2019-12-28 09:37 | ECHO ---
*[facility]* [place] [address] Fax #: [phone] Transthoracic Echocardiogram Patient: Vineet Houser : 1950 Study Date: 12/28/2019 Age: 69 Gender: M HR: 134 bpm Height: 69 in /175.3 cm BSA: 2.59 m^2 Weight: 339.3 lb /154.2 kg BMI: 50.2 kg/m^2 *Manager Truck: * Juli Escobedo RD *Referring Physician: * Charlene ReevesReading Physician: * Nain Jenkins MD Indications: SOB. History: Oc's angina. Atrial fibrillation. Functional status: Following treatment plan for sleep apnea. Risk factors: Former tobacco use. Hypertension. Morbidly obese. Conclusions Summary: - Left ventricle: Systolic function is normal. The estimated ejection fraction is 60-65%. - Ventricular septum: There is septal flattening of the interventricular septum consistent with RV volume or pressure overload. - Left atrium: The atrium is severely dilated. - Right atrium: The atrium is moderately to severely dilated. - Mitral valve: There is trace to mild regurgitation. - Tricuspid valve: There is trace to mild regurgitation. - Ascending aorta: The ascending aorta is mildly dilated. - No previous echocardiogram available. Study data: Transthoracic echocardiogram. Procedure: Transthoracic echocardiography was performed. Image quality was suboptimal. Intravenous Definity , 3 mlswas administered. Complete 2D, spectral Doppler, and color flow Doppler. Location: Bedside. Patient status: Inpatient. Patient room number: 443-02. Rhythm: Atrial fibrillation. Findings Left ventricle: The cavity size is normal. Wall thickness is mildly increased. Systolic function is normal. The estimated ejection fraction is 60-65%. Wall motion is normal; there are no regional wall motion abnormalities. Left ventricular diastolic function parameters are indeterminate. Right ventricle: The cavity size is moderately dilated. Systolic function is normal. Systolic pressure is within the normal range. Ventricular septum: There is septal flattening of the interventricular septum consistent with RV volume or pressure overload. Left atrium: The atrium is severely dilated. Right atrium: The atrium is moderately to severely dilated. Mitral valve: The leaflets are mildly thickened. There is no evidence of stenosis. There is trace to mild regurgitation. Aortic valve: The valve is trileaflet. The leaflets are normal thickness. There is no evidence of stenosis. There is no significant regurgitation. Tricuspid valve: The leaflets are normal thickness. There is no evidence of stenosis. There is trace to mild regurgitation. Pulmonic valve: Not well visualized. There is no evidence of stenosis. There is trace regurgitation. Aorta: Aortic root: The aortic root is appears normal. Ascending aorta: The ascending aorta is mildly dilated. Aortic arch: The aortic arch is appears normal. Pericardium: A prominent pericardial fat pad is present. There is no significant pericardial effusion. Pulmonary arteries: The main pulmonary artery is normal-sized. Systolic pressure is within the normal range. Systemic veins: Inferior vena cava: The vessel is normal in size. There is (>= 50%) respiratory change in the IVC dimension. Measurements Left ventricle Value Ref Aortic valve Value Ref ROSANNE, LAX 4.3 cm 4.2 - 5.8 Koffi diam, ED 2.0 cm ----- ESD, LAX 2.8 cm 2.5 - 4.0 Peak v, S 1.03 m/sec ----- FS, LAX 34 % 25 - 43 VTI, S 20.1 cm ----- PW, ED, LAX (H) 1.1 cm 0.6 - 1.0 Mean grad, S 2.0 mm Hg ----- FS 34 % 25 - 43 Peak grad, S 4.0 mm Hg ----- Mid-wall FS 14 % LVOT/AV, VTI ratio 0.75 ----- PW, ED (H) 1.1 cm 0.6 - 1.0 E', lat koffi, TDI 11.3 cm/sec >=10.0 Mitral valve Value Ref E/e', lat koffi, 9 Peak E 0.98 m/sec ----- TDI Peak A 1.04 m/sec ----- E', med koffi, TDI 11.5 cm/sec >=7.0 Decel time 125 ms --- -- E/e', med koffi, 8 Peak grad, D 3.8 mm Hg ----- TDI Peak E/A ratio 0.9 ----- E', avg, TDI 11.4 cm/sec E/e', avg, TDI 9 <=14 Pulmonic valve Value Ref Peak v, S 0.87 m/sec ----- LVOT Value Ref Peak grad, S 3.0 mm Hg ----- Peak salome, S 0.78 m/sec VTI, S 15.0 cm Tricuspid valve Value Ref Peak grad, S 2 mm Hg TR peak v 2.33 m/sec <=2.8 Mean grad, S 1 mm Hg Peak RV-RA grad, S 22 mm Hg ----- Ventricular septum Value Ref Aortic root Value Ref IVS, ED (H) 1.1 cm 0.6 - 1.0 Root diam 3.3 cm <4.6 Right ventricle Value Ref Ascending aorta Value Ref AW thickness, ED (H) 0.7 cm 0.1 - 0.5 AAo AP diam, S 3.9 cm ----- ROSANNE, LAX 3.9 cm ROSANNE minor ax, A4C (H) 4.6 cm 1.9 - 3.5 Aortic arch Value Ref mid Arch diam 2.7 cm ----- Pressure, S 25 mm Hg Decending aorta Value Ref Left atrium Value Ref Babar peak salome 0.6 m/sec ----- AP dim, ES (H) 4.10 cm 3.00 - 4.00 Pulmonary artery Value Ref ML dim, A4C 6.0 cm Pressure, S 22.0 mm Hg ----- SI dim, A4C 7.3 cm Vol/bsa, ES, 1-p (H) 76 ml/m^2 12 - 37 Inferior vena cava Value Ref A4C Diam 2.0 cm ----- Vol/bsa, ES, A/L (H) 65 ml/m^2 16 - 34 Right atrium Value Ref SI dim, ES (H) 6.7 cm 3.4 - 5.3 ML dim, ES, A4C (H) 6.6 cm 2.6 - 4.4 Estimated RAP 3 mm Hg Legend: (L) and (H) larry values outside specified reference range. Prepared and electronically signed by Nain Jenkins MD 12/28/2019 09:37
[2019-12-28] MEDS ORDERED: Iodixanol* (CONTRAST) 320 MG/ML 100 ML SDV IV ONE (09:56)
--- NOTE | 2019-12-28 10:04 | PN ---
Subjective Date of Service: 12/28/19 Interval History: pt feels well, Denies CP, SOB. stated that he came to ED due to not being able to f/u in re: a fib as outpatient and he was concerned that when checking his HR he was in 120's on his pulse oximeter. Objective Active Medications: Apixaban (Eliquis*) 5 mg PO BID [facility] Iodixanol (Visipaque* 320 (Contrast)) 100 ml IV ONCE ONE Stop: 12/28/19 09:57 Metoprolol Tartrate (Lopressor Tab*) 75 mg PO BID [facility] Last Admin: 12/28/19 08:54 Dose: 75 mg Multivitamins/Minerals (Theragran/Minerals Tab*) 1 tab PO DAILY [facility] Last Admin: 12/28/19 08:54 Dose: 1 tab Tramadol HCl (Ultram*) 50 mg PO Q6HR PRN PRN Reason: PAIN - MODERATE Vital Signs - 8 hr 12/28/19 04:00 Temperature 97.5 F Pulse Rate 90 Respiratory 24 Rate Blood Pressure 115/76 (mmHg) O2 Sat by Pulse 93 Oximetry Oxygen Devices in Use Now: None Appearance: 69 yo m in nAD, AAOx3 Eyes: No Scleral Icterus, PERRLA Ears/Nose/Mouth/Throat: NL Teeth, Lips, Gums, Mucous Membranes Moist Neck: NL Appearance and Movements; NL JVP, Trachea Midline Respiratory: Symmetrical Chest Expansion and Respiratory Effort, Clear to Auscultation Cardiovascular: - - irregular, no murmur Abdominal: NL Sounds; No Tenderness; No Distention, No Hepatosplenomegaly Lymphatic: No Cervical Adenopathy Extremities: No Clubbing, Cyanosis, - - R calf and ankle more swollen than left( chronic as per pt) Skin: No Nodules or Sclerosis Neurological: Alert and Oriented x 3, NL Muscle Strength and Tone Result Diagrams: 12/27/19 21:30 12/27/19 21:30 Assess/Plan/Problems-Billing Assessment: 69 yo m with h/o BMI>50, HTN, recent dx of Lugwig's Angina(for which he was transferred to [facility] on 12/03/19), noted to be in A.fib then presents with HR 120's - Patient Problems (1) Atrial fibrillation with rapid ventricular response Comment: Increasing lopressor to 75 BID from 50 BId at home, holding HCTZ and ramipril due to low normal SBP Asked cardiology to consult. Echo shows LA dilatation and RV pressure overload CHADSVASC score of 2-pt needs to be anticoagulated, Lovenox administered at 1AM , but changed to Eliquis starting today at noon. As per cardiology Pt may not be a good candidate for DOAC due to BMI>50, will await further recommendations (2) KATERINE (obstructive sleep apnea) Comment: cont CPAP (3) Obesity Comment: discussed need for diet and exercise, asked nutrition to see pt (4) DVT prophylaxis Comment: Eliquis for now Status and Disposition: OBV, may be able to be discharged later on today
[2019-12-28] MEDS ORDERED: Digoxin IV* 0.5 MG/2 ML AMP (0.25 MG/ML) IV SLOW PU ONE (10:35)
[2019-12-28] MEDS ORDERED: Heparin VIAL(*) 5000 UNITS/ML VIAL (FIVE THOUSAND) IV SCH (11:00)
[2019-12-28 11:23] LABS: BUN/Creatinine Ratio 22.1 (8-20); Calcium 9.4 mg/dL (8.6-10.3); EGFR African American 85.9 (>60); Potassium 3.6 mmol/L (3.5-5.0)
--- NOTE | 2019-12-28 13:05 | CONS ---
CONSULTATION REPORT: DATE OF CONSULT: 12/28/19 REASON FOR CONSULTATION: Newly diagnosed AFib. ATTENDING SALESMAN/OWNER: Dr. Jenkins* (dictated by Svetlana Hanson NP). PRIMARY SALESMAN/OWNER: Dr. Jenkins. PRIMARY PHYSICIAN: Dr. Liz. PRIMARY RETAIL HELPER: Dr. Smith. CHIEF COMPLAINT: Notable elevated heart rate on home monitor with known AFib. HISTORY OF PRESENT ILLNESS: This is a pleasant 69-year-old male patient who follows Dr. Jenkins of our practice due to a notable history of hypertension, morbid obesity, hepatic steatosis, obstructive sleep apnea, compliant with CPAP therapy, history of renal insufficiency, hyperlipidemia, PVCs. The patient states that he was recently transferred to [facility] on 12/03/19 due to Oc's angina. At that time, he was admitted to the ICU. There was a [place] of [place] [facility] [place] the patient to [facility] that revealed edema involving the right mandibular space with fluid connection in the deep right muscles of the floor measuring 2 cm, presumably in the hyoglossus muscle. He was found to be in AFib with RVR, ventricular rate was 139 beats per minute on 12/03/19. It appears that he received IV clindamycin and Levaquin therapy. Per progress notes from [facility], it was felt that newly found paroxysmal AFib was secondary to underlying infection. Thus, decision was made to increase his metoprolol and place him on aspirin therapy. He was not discharged on oral anticoagulation. On Wednesday, , the patient saw Lynne Cosby NP, in followup for his obstructive sleep apnea at that time. He states that he was advised to follow up with Dr. Jenkins in regards to his atrial fibrillation. She was concerned because of increased pretibial surface edema. The patient states he tried to contact our office; however, was unsuccessful in regards to setting up a followup appointment. Yesterday evening, on his home monitor, he noted his ventricular rate was 140 beats per minute. Thus, he opted for evaluation. While being evaluated in emergency department, the patient had an ECG obtained, which revealed AFib, Aflutter, ventricular rate 110 beats per minute. He was admitted to [address] [place] [address] and we were asked to see the patient in consultation. The patient denies chest pain, reports occasional intermittent palpitations and sensation of heart racing. Does report noticeable fatigue; however, he states he thought it was related to underlying Oc's angina. Denies shortness of breath, dizziness, syncope, weight gain. Does notice increased pretibial edema. Echocardiogram obtained 12/27/19; per report, LVEF 60% to 65%, severe left atrial dilatation, [id number] right atrial dilatation, [id number] mitral insufficiency, [id number] tricuspid insufficiency, aortic root 3.3 cm , ascending aorta mildly dilated at 3.9 cm. Last ischemic evaluation via Lexiscan nuclear stress test, 09/14/18; per report , no arrhythmias, no ischemic changes with administration of regadenoson. Per myocardial perfusion imaging, there was no fixed or reversible defect, EF 62%, no wall motion abnormality, low-risk study. PAST MEDICAL HISTORY: 1. Morbid obesity. 2. Hepatic steatosis. 3. Hypertension. 4. Obstructive sleep apnea. 5. Severe left atrial dilatation. 6. 3.9 cm ascending aortic ectasia. 7. History of hypertension. 8. History of hyperlipidemia. 9. History of PVCs. 10. History of Oc's angina 12/03/19. 11. History of anxiety. PAST SURGICAL HISTORY: Includes tonsillectomy and prior thyroid biopsy and prior cardiac catheterization at [facility]; per the patient, normal coronary arteries. HOME MEDICATIONS: Per admission med rec include: 1. HCTZ 25 a day. 2. Aspirin 81 a day. 3. Ramipril 10 mg a day. 4. Metoprolol 50 b.i.d. 5. Lipitor 10 mg a day. 6. Tramadol 50 to 100 mg p.o. q.6 h., p.r.n. 7. Tylenol as directed. ALLERGIES: List includes NIACIN and IBUPROFEN, both of which cause elevated renal function. FAMILY HISTORY: Negative to cardiovascular disease in first-degree relatives. 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 Former tobacco user, quit 10 years ago. Prior to recent infection, consumed 1 beer a day. He denies falling at home. He ambulates independently and he is single, lives at home alone. REVIEW OF SYSTEMS: All systems have been reviewed and are otherwise negative except as above mentioned in the HPI. PHYSICAL EXAMINATION: The patient is sitting upright in bed, appears in no apparent distress. He is an obese older-appearing gentleman, A and O x3. HEENT : Head is atraumatic, normocephalic. Oral mucosa is moist. Tongue is midline. Neck: Unable to assess for JVD due to neck girth. Cardiac: Tachycardic S1, S2. Irregular rate and rhythm. No overt murmur or rub noted. Lungs: Auscultated posteriorly. No evidence of adventitious breath sounds. Respirations nonlabored. /GI: Abdomen is obese, nontender, firm. Normoactive bowel sounds x4. Extremities: 1+ pretibial edema noted bilaterally , otherwise no clubbing. No cyanosis. Peripheral Vascular: 3+ brachial pulses palpated bilaterally and symmetrically, 2+ popliteal pulses palpated bilaterally and symmetrically. Skin: Intact. No evidence of jaundice, rashes, or ecchymosis appreciated. DIAGNOSTIC STUDIES/LAB DATA: Blood work reviewed from 12/27/19, white count 7.7 , hemoglobin 12.3, hematocrit 37, platelets 227. INR is 1.14. Sodium 140, potassium 4.4, creatinine is 1.23, glucose 103. Troponin is negative x1. TSH is 2.24, BNP 227. Hepatitis C antibody is negative. Telemetry reviewed, AFib, rate 100 to 115. CTA pending. ASSESSMENT AND PLAN: 1. Newly diagnosed persistent atrial fibrillation; the patient appears to have been in atrial fibrillation with rapid ventricular rate response since . Duration of time in atrial fibrillation is unknown given the patient is sometimes symptomatic, sometimes he is not. CHADS-VASc is at least 2 given history of hypertension and age. We would recommend oral anticoagulation; however, given body mass index is 50, efficacy of direct oral anticoagulant is truly unknown. Thus, would recommend Coumadin with a goal INR 2 to 3. The patient is requesting a home INR monitor, states he is willing to pay out of pocket. We will defer to primary team for piano case and bench assembler consultation to pursue this. At this current time, we will pursue rate control approach. We will discontinue Lopressor and instead place the patient on metoprolol 75 mg p.o. b.i.d. We will administer 125 mcg of IV digoxin now and start 125 mcg of p.o. digoxin this evening. Recommend keeping ventricular rate less than 100 to avoid tachy-induced cardiomyopathy. He has severe left atrial enlargement. Thus, maintenance of normal sinus rhythm would likely be difficult; however, it is not unreasonable once INR is therapeutic for 4 weeks consecutively, to consider outpatient cardioversion. TFTs are normal. Etiology of atrial fib is likely related to underlying infection and/or obesity/sleep apnea. We will follow. 2. Oc's angina, status post [facility] hospitalization, requiring IV antibiotics therapy. Defer to primary team. The patient does not have leukocytosis at this time and does not appear infectious. 3. History of hypertension, normotensive on current therapy, goal blood pressure is less than 130/80 given history of renal disease. 4. History of hyperlipidemia, on statin therapy, goal LDL is less than 100. 5. Known 3.9 cm ascending aortic ectasia, on beta-lois therapy and statin therapy. Recommend keeping blood pressure less than 130/80. 6. Disposition: Pending course. The patient is listed as full code. Dr. Jenkins has seen and examined the patient and agrees with the above assessment and plan. SVETLANA HANSON NP [id number]/CPS #: [id number] BAUDILIO
[2019-12-28] MEDS: Heparin DRIP 25,000 UNITS(*) 25,000 UNITS/500 ML BAG IV SCH ×2 (13:55→19:51)
[2019-12-28 14:04] LABS: ABS Eosinophils 0.2 10^3/ul (0-0.6); ABS Monocytes 0.8 10^3/ul (0-0.8); ABS Neutrophils 5.2 10^3/ul (1.5-7.7); Eosinophil % 2.7 %; Hematocrit 38 % (42-52); Hemoglobin 12.8 g/dL (14.0-18.0); Lymphocyte % 14.4 %; Mean Corpuscular HGB Conc 34 g/dL (31-36); Mean Corpuscular Hemoglobin 28 pg (27-31); Mean Corpuscular Volume 83 fL (80-94); Mean Platelet Volume 8.3 fL (7.4-10.4); Platelet Count 236 10^3/uL (150-450); Red Blood Count 4.54 10^6 /uL (4.18-5.48); Red Cell Distribution Width 15 % (10-15); White Blood Count 7.3 10^3/uL (3.5-10.8)
[2019-12-28] MEDS: Warfarin TAB(*) 6 MG PO SCH (17:26)
[2019-12-28] MEDS: Digoxin TAB* 0.125 MG PO SCH (17:27)
[2019-12-28] MEDS: Metoprolol Succinate XL TAB* 50 MG PO SCH (20:41)
[2019-12-28] MEDS ORDERED: Al Hydrox/Mg Hydrox/Simet LIQ* 30 ML UDC PO ONE (22:46)
[2019-12-28] MEDS ORDERED: Lidocaine 2% VISCOUS* 15 ML UDC PO ONE (22:46)
--- NOTE | 2019-12-29 02:05 | PN ---
Hospitalist Progress Note Date of Service: 12/29/19 0900 received call that patient was having left side burning chest pain, gradual onset, no radiation, no other symptoms, VSS, worse with mariann down. Stated that he has this at home. EKG ordered, reviewed no ischemic changes noted afib noted, reviewed to previous ekg stable, trop negatrive, gi cocktail given with good results, chest pain decreased and at 0200 patient sleeping,
[2019-12-29 07:13] LABS: ABS Eosinophils 0.2 10^3/ul (0-0.6); ABS Lymphocytes 1.5 10^3/ul (1.0-4.8); ABS Monocytes 0.6 10^3/ul (0-0.8); ABS Neutrophils 3.6 10^3/ul (1.5-7.7); Hematocrit 37 % (42-52); Hemoglobin 12.4 g/dL (14.0-18.0); Lymphocyte % 24.6 %; Mean Corpuscular HGB Conc 34 g/dL (31-36); Mean Corpuscular Hemoglobin 28 pg (27-31); Mean Corpuscular Volume 83 fL (80-94); Mean Platelet Volume 8.3 fL (7.4-10.4); Nucleated Red Blood Cells % 0.1; Platelet Count 209 10^3/uL (150-450); Red Blood Count 4.48 10^6 /uL (4.18-5.48); Red Cell Distribution Width 15 % (10-15)
[2019-12-29 07:19] LABS: Activated Partial Thrombo Time 56.3 seconds (26.0-38.0); INR 1.22 (0.82-1.09)
[2019-12-29] MEDS: Metoprolol Succinate XL TAB* 50 MG PO SCH ×2 (09:48→20:51)
[2019-12-29] MEDS: Multivitamins/Minerals TAB PO SCH (09:48)
[2019-12-29] MEDS: traMADol TAB* 50 MG PO PRN ×2 (10:09→17:23)
[2019-12-29] MEDS: Heparin DRIP 25,000 UNITS(*) 25,000 UNITS/500 ML BAG IV SCH (10:10)
--- NOTE | 2019-12-29 10:38 | PN ---
Subjective Date of Service: 12/29/19 Interval History: Pt had left lower CP last night, though that it was probably due to laying in bed but "got concerned " and let RN know. Now CP free, denies SOB. Objective Active Medications: Digoxin (Lanoxin Tab*) 0.125 mg PO 1700 [facility] Last Admin: 12/28/19 17:27 Dose: 0.125 mg Heparin Sodium (Porcine) (Heparin Vial(*)) 0 units IV .FOR HEPARIN BOLUSES [facility] Last Admin: 12/28/19 13:57 Dose: 7,300 units Heparin Sodium/Dextrose (Heparin Drip 25,000 Units(*)) 25,000 units in 500 mls @ 0 mls/hr IV PER RATE [facility]; Protocol Last Admin: 12/29/19 10:10 Dose: 25 mls/hr Metoprolol Succinate (Toprol Xl Tab*) 75 mg PO BID [facility] Last Admin: 12/29/19 09:48 Dose: 75 mg Multivitamins/Minerals (Theragran/Minerals Tab*) 1 tab PO DAILY [facility] Last Admin: 12/29/19 09:48 Dose: 1 tab Tramadol HCl (Ultram*) 50 mg PO Q6HR PRN PRN Reason: PAIN - MODERATE Last Admin: 12/29/19 10:09 Dose: 50 mg Warfarin Sodium (Coumadin Tab(*)) 6 mg PO DAILY@1700 [facility]; Protocol Last Admin: 12/28/19 17:26 Dose: 6 mg Vital Signs - 8 hr 12/29/19 12/29/19 12/29/19 03:02 07:15 08:00 Temperature 96.8 F 97.6 F Pulse Rate 89 78 Respiratory 20 20 16 Rate Blood Pressure 142/73 143/73 (mmHg) O2 Sat by Pulse 95 97 Oximetry 12/29/19 10:09 Temperature Pulse Rate Respiratory 16 Rate Blood Pressure (mmHg) O2 Sat by Pulse Oximetry Oxygen Devices in Use Now: None Appearance: 69 yo M in nAD, aAOx3 Eyes: No Scleral Icterus, PERRLA Ears/Nose/Mouth/Throat: NL Teeth, Lips, Gums, Mucous Membranes Moist Neck: NL Appearance and Movements; NL JVP, Trachea Midline Respiratory: Symmetrical Chest Expansion and Respiratory Effort, Clear to Auscultation Cardiovascular: NL Sounds; No Murmurs; No JVD, RRR Abdominal: NL Sounds; No Tenderness; No Distention Lymphatic: No Cervical Adenopathy Extremities: No Clubbing, Cyanosis, - - trace b/l ankle edema Skin: No Rash or Ulcers Neurological: Alert and Oriented x 3, NL Muscle Strength and Tone Result Diagrams: 12/29/19 06:30 12/28/19 11:00 Assess/Plan/Problems-Billing Assessment: 69 yo m with h/o BMI>50, HTN, recent dx of Lugwig's Angina(for which he was transferred to [facility] on 12/03/19), noted to be in A.fib then presents with HR 120's - Patient Problems (1) Atrial fibrillation with rapid ventricular response Comment: Increased lopressor to 75 BID from 50 BID at home, holding HCTZ and will restart ramipril today Appreciate cardiology consult. Echo shows LA dilatation and RV pressure overload. CTA neg for PE CHADSVASC score of 2-pt needs to be anticoagulated, Lovenox administered at admisaion, but as per cardiology Pt may not be a good candidate for DOAC due to BMI>50. Spoke with hematology on 12/28/19, Lovenox and DOACS are not studied in high BMI pt's and the safest option is heparin gtt at this point to bridge to Coumadin. Pt agreed to stay till INR therapeutic. (2) KATERINE (obstructive sleep apnea) Comment: cont CPAP (3) Obesity Comment: discussed need for diet and exercise, asked nutrition to see pt (4) DVT prophylaxis Comment: Eliquis for now (5) Chest pain Comment: likely musculoskeletal, but pt needs risk stratification in re: A. fib and further management and he is at risk for CAD. D/w cardiology. will do resting stress images today and exercise Myoview on Sunday 12/31 Status and Disposition: OBV changed to inpatient
[2019-12-29] MEDS: Digoxin TAB* 0.125 MG PO SCH (17:15)
[2019-12-29] MEDS: Warfarin TAB(*) 6 MG PO SCH (17:16)
[2019-12-30] MEDS: traMADol TAB* 50 MG PO PRN ×2 (05:26→21:27)
[2019-12-30] MEDS: Heparin DRIP 25,000 UNITS(*) 25,000 UNITS/500 ML BAG IV SCH (05:27)
[2019-12-30 06:44] LABS: ABS Eosinophils 0.2 10^3/ul (0-0.6); ABS Lymphocytes 1.8 10^3/ul (1.0-4.8); ABS Monocytes 0.7 10^3/ul (0-0.8); ABS Neutrophils 4.1 10^3/ul (1.5-7.7); Eosinophil % 3.5 %; Hematocrit 42 % (42-52); Hemoglobin 13.4 g/dL (14.0-18.0); Lymphocyte % 25.6 %; Mean Corpuscular HGB Conc 32 g/dL (31-36); Mean Corpuscular Hemoglobin 28 pg (27-31); Mean Corpuscular Volume 86 fL (80-94); Mean Platelet Volume 8.1 fL (7.4-10.4); Nucleated Red Blood Cells % 0.1; Platelet Count 219 10^3/uL (150-450); Red Blood Count 4.85 10^6 /uL (4.18-5.48); Red Cell Distribution Width 16 % (10-15); White Blood Count 6.9 10^3/uL (3.5-10.8)
[2019-12-30 06:51] LABS: Activated Partial Thrombo Time 60.4 seconds (26.0-38.0); INR 1.23 (0.82-1.09)
[2019-12-30 07:00] LABS: EGFR Non-African American 81.8 (>60)
[2019-12-30] MEDS: Multivitamins/Minerals TAB PO SCH (09:26)
[2019-12-30] MEDS: Metoprolol Succinate XL TAB* 50 MG PO SCH ×2 (09:26→18:01)
--- NOTE | 2019-12-30 12:50 | PN ---
Subjective Date of Service: 12/30/19 - Afib, RVR Interval History: The patient states he feels better, but vague on specifics. Sleeping well with CPAP. No palpitations. No chest pain. Facial swelling and dental extraction pocket feeling much better. Resolution of LE edema since admission. Objective Active Medications: Digoxin (Lanoxin Tab*) 0.125 mg PO 1700 [facility] Last Admin: 12/29/19 17:15 Dose: 0.125 mg Heparin Sodium (Porcine) (Heparin Vial(*)) 0 units IV .FOR HEPARIN BOLUSES [facility] Last Admin: 12/28/19 13:57 Dose: 7,300 units Heparin Sodium/Dextrose (Heparin Drip 25,000 Units(*)) 25,000 units in 500 mls @ 0 mls/hr IV PER RATE [facility]; Protocol Last Admin: 12/30/19 05:27 Dose: 25 mls/hr Metoprolol Succinate (Toprol Xl Tab*) 75 mg PO BID [facility] Last Admin: 12/30/19 09:26 Dose: 75 mg Multivitamins/Minerals (Theragran/Minerals Tab*) 1 tab PO DAILY [facility] Last Admin: 12/30/19 09:26 Dose: 1 tab Tramadol HCl (Ultram*) 50 mg PO Q6HR PRN PRN Reason: PAIN - MODERATE Last Admin: 12/30/19 05:26 Dose: 50 mg Warfarin Sodium (Coumadin Tab(*)) 6 mg PO DAILY@1700 [facility]; Protocol Last Admin: 12/29/19 17:16 Dose: 6 mg HOME MEDS: Acetaminophen [Non-Aspirin] 20 ml PO Q6HR PRN 12/27/19 [History Confirmed ] Aspirin EC TAB* [Ecotrin EC Low Dose 81 MG*] 81 mg PO DAILY 12/27/19 [History Confirmed 12/28/19] Hydrochlorothiazide TAB* [Hydrodiuril TAB*] 25 mg PO DAILY 12/27/19 [History Confirmed 12/28/19] Metoprolol Tartrate TAB* [Lopressor TAB*] 50 mg PO BID 12/27/19 [History Confirmed 12/28/19] Multivitamins/Minerals TAB* [Theragran/minerals TAB*] 1 tab PO DAILY 12/27/19 [ History Confirmed 12/28/19] Ramipril CAP* [Altace CAP*] 10 mg PO DAILY 12/27/19 [History Confirmed 12/28/19] traMADol TAB* [Ultram*] 50 - 100 mg PO Q6HR PRN 12/27/19 [History Confirmed ] Atorvastatin* [Lipitor*] 10 mg PO DAILY 12/28/19 [History Confirmed 12/28/19] Vital Signs - 8 hr 12/30/19 12/30/19 12/30/19 05:26 07:20 09:28 Temperature 97.8 F Pulse Rate 77 Respiratory 16 19 20 Rate Blood Pressure 134/74 (mmHg) O2 Sat by Pulse 96 Oximetry 12/30/19 12/30/19 09:30 11:09 Temperature 97.2 F Pulse Rate 84 Respiratory 19 24 Rate Blood Pressure 135/78 (mmHg) O2 Sat by Pulse 98 Oximetry Oxygen Devices in Use Now: None Appearance: super morbidly obese male, seated on edge of bed w/o any acute distress. Eyes: No Scleral Icterus, PERRLA Ears/Nose/Mouth/Throat: Clear Oropharnyx, Mucous Membranes Moist Neck: - - neck thick, no obvious swelling or increase in JVP Respiratory: Symmetrical Chest Expansion and Respiratory Effort, Clear to Auscultation - distant Cardiovascular: - - irregularly irregular, no murmurs. Abdominal: - - marked obesity, nml BS. Extremities: No Edema Skin: No Rash or Ulcers Neurological: Alert and Oriented x 3 Lines/Tubes/Other Access: Clean, Dry and Intact Peripheral IV Result Diagrams: 12/30/19 06:00 12/30/19 06:00 Diagnostic Imaging: Patient Name: BELKIS HOUSER Ordering Physician: Catrachita Higgins MD : 1950 Age: 69 Sex: M Location: [address] [place] [address] MEDICAL/TELEMETRY Exam Date: 12/28/19943 ADM Status: ADM IN Observation Date/Time: 12/27/19 233 Order Information: CTA CHEST Accession Number: [id number] CPT: 69228 HISTORY: leg edema, a.fib with RV pressure increased r/o PE COMPARISONS: February 01, 2019 TECHNIQUE: Multiple contiguous axial CT scans of the chest were obtained after the administration of nonionic intravenous contrast, timed to the pulmonary arterial phase of contrast enhancement.. Coronal and sagittal multiplanar reformations are also submitted for review. CONTRAST: Administered 100.3 ml of VISIPAQUE 320 mg/ml FINDINGS: NECK AND THYROID: The lower neck and thyroid are unremarkable. CHEST WALL: There is no lower cervical, axillary, or supraclavicular lymphadenopathy by size criteria. HEART AND PERICARDIUM: Coronary calcifications are noted. AORTA AND PULMONARY VASCULATURE: There is no pulmonary arterial filling defect to suggest pulmonary embolism. There is no linear filling defect within the aorta to suggest aortic dissection. There is atherosclerosis of the thoracic aorta. MEDIASTINUM: There is no mediastinal lymphadenopathy by size criteria. MARY: There is no hilar lymphadenopathy by size criteria. AIRWAY AND ESOPHAGUS: The airway is unremarkable, without endobronchial filling defect. The esophagus is grossly normal. LUNG PARENCHYMA: The lungs are clear. PLEURA: No pleural abnormalities are noted. UPPER ABDOMEN: The upper abdomen is unremarkable. BONES AND SOFT TISSUES: Degenerative changes are noted. OTHER: None. IMPRESSION: 1. NO PULMONARY ARTERIAL FILLING DEFECT TO SUGGEST PULMONARY EMBOLISM. 2. ATHEROSCLEROSIS <Electronically signed by Zurdo Quick MD in OV> 12/28/191334 Dictated By: Zurdo Quick MD Dictated Date/Time: 12/28/191331 Transcribed Date/Time: 12/28/191331 This report is only to be considered final once signed by the Provider(s) as displayed in the "<Electronically Signed by >" field (s). Absence of a signature indicates the report is in a draft status and still needs to be finalized. In the event this document was created by someone other than the signing Provider, the individual initiating the document will be listed in the "Entered by:" or "Dictated by:" yoon. 1 of 2 *[facility]* [place] [address] Fax #: [phone] Transthoracic Echocardiogram Patient: Belkis Houser : 1950 Study Date: 12/28/2019 Age: 69 Gender: M HR: 134 bpm Height: 69 in /175.3 cm BSA: 2.59 m^2 Weight: 339.3 lb /154.2 kg BMI: 50.2 kg/m^2 *Community Service Director: * Juli Escobedo [facility] *Referring Physician: * Charlene Reeves *Reading Physician: * Nain Jenkins MD Indications: SOB. History: Oc&aponettie;nettie angina. Atrial fibrillation. Functional status: Following treatment plan for sleep apnea. Risk factors: Former tobacco use. Hypertension. Morbidly obese. Conclusions Summary: - Left ventricle: Systolic function is normal. The estimated ejection fraction is 60-65%. - Ventricular septum: There is septal flattening of the interventricular septum consistent with RV volume or pressure overload. - Left atrium: The atrium is severely dilated. - Right atrium: The atrium is moderately to severely dilated. - Mitral valve: There is trace to mild regurgitation. - Tricuspid valve: There is trace to mild regurgitation. - Ascending aorta: The ascending aorta is mildly dilated. - No previous echocardiogram available. Study data: Transthoracic echocardiogram. Procedure: Transthoracic echocardiography was performed. Image quality was This report is only to be considered final once signed by the Provider(s) as displayed in the "<Electronically Signed by >" field (s). Absence of a signature indicates the report is in a draft status and still needs to be finalized. In the event this document was created by someone other than the signing Provider, the individual initiating the document will be listed in the "Entered by:" or "Dictated by:" yoon. EKG Data: Monitor: afib, mildly tachycardic. Assess/Plan/Problems-Billing Assessment: 69 yo m with h/o BMI>50, HTN, recent dx of Lugwig's Angina(for which he was transferred to [facility] on 12/03/19) and subsequent dental extraction, now off antibiotics, noted to be in A.fib at sleep f/u visit and presented to [facility] with HR 120's. Getting treated with anticoagulation and rate control. PMH additionally includes KATERINE, hyperlipidemia, dilatation of the ascending aorta , fatty liver, PVC's (and normal coronary arteries on prior cardiac catherterization). - Patient Problems (1) Atrial fibrillation with rapid ventricular response Comment: Increased lopressor to 75 BID from 50 BID at home with improved rate control but still on the fast side. -Will increase metorplol to 100 mg AM, 75 mg PM Digoxen added as well. Echo shows LA dilatation and RV pressure overload. CTA neg for PE CHADSVASC score of 2-pt needs to be anticoagulated, - Pt may not be a good candidate for DOAC due to BMI>50. On heparin gtt at this point to bridge to Coumadin. (2) Chest pain Comment: No chest pain now, was likely musculoskeletal, but pt needs risk stratification in re: A. fib and further management and he is at risk for CAD. D /w cardiology. 2 day stress test in progress, to be completed Wednesday. (3) DVT prophylaxis Comment: On heparin/coumodin and ambulating. (4) KATERINE (obstructive sleep apnea) Code(s): G47.33 - OBSTRUCTIVE SLEEP APNEA (ADULT) (PEDIATRIC) SNOMED Code(s): 35546255 Comment: cont CPAP (5) Obesity Comment: discussed need for diet and exercise, nutrition seeing patient. Status and Disposition: OBV changed to inpatient Counseling and/or Coordination of Care Minutes: 40 minutes
[2019-12-30] MEDS ORDERED: Polyethylene Glycol 3350* 17 GM PACKET PO PRN (12:58)
[2019-12-30] MEDS ORDERED: Polyethylene Glycol 3350* 17 GM PACKET ONE (13:01)
[2019-12-30] MEDS ORDERED: Metoprolol Tartrate TAB* 25 MG PO ONE (13:15)
[2019-12-30] MEDS: Warfarin TAB(*) 6 MG PO SCH (18:00)
[2019-12-30] MEDS: Digoxin TAB* 0.125 MG PO SCH (18:00)
[2019-12-31] MEDS: Heparin DRIP 25,000 UNITS(*) 25,000 UNITS/500 ML BAG IV SCH ×2 (00:02→18:39)
[2019-12-31 05:13] LABS: ABS Eosinophils 0.3 10^3/ul (0-0.6); ABS Lymphocytes 1.8 10^3/ul (1.0-4.8); ABS Monocytes 0.8 10^3/ul (0-0.8); Eosinophil % 4.1 %; Hematocrit 38 % (42-52); Hemoglobin 12.8 g/dL (14.0-18.0); Lymphocyte % 25.9 %; Mean Corpuscular HGB Conc 34 g/dL (31-36); Mean Corpuscular Hemoglobin 28 pg (27-31); Mean Corpuscular Volume 83 fL (80-94); Mean Platelet Volume 8.1 fL (7.4-10.4); Platelet Count 206 10^3/uL (150-450); Red Blood Count 4.62 10^6 /uL (4.18-5.48); Red Cell Distribution Width 16 % (10-15); White Blood Count 6.9 10^3/uL (3.5-10.8)
[2019-12-31 05:21] LABS: INR 1.49 (0.82-1.09)
[2019-12-31] MEDS: Metoprolol Succinate XL TAB* 100 MG PO SCH (08:13)
[2019-12-31] MEDS: Multivitamins/Minerals TAB PO SCH (08:13)
[2019-12-31] MEDS: Metoprolol Succinate XL TAB* 50 MG PO SCH (17:31)
[2019-12-31] MEDS: Digoxin TAB* 0.125 MG PO SCH (17:33)
[2019-12-31] MEDS: Warfarin TAB(*) 6 MG PO SCH (17:33)
[2019-12-31] MEDS ORDERED: Warfarin TAB(*) 2 MG PO ONE (19:00)
[2019-12-31] MEDS: traMADol TAB* 50 MG PO PRN (20:47)
[2020-01-01 07:35] LABS: ABS Eosinophils 0.3 10^3/ul (0-0.6); ABS Lymphocytes 1.7 10^3/ul (1.0-4.8); ABS Monocytes 0.9 10^3/ul (0-0.8); ABS Neutrophils 4.9 10^3/ul (1.5-7.7); Eosinophil % 3.5 %; Hematocrit 41 % (42-52); Hemoglobin 13.9 g/dL (14.0-18.0); Lymphocyte % 21.9 %; Mean Corpuscular HGB Conc 34 g/dL (31-36); Mean Corpuscular Hemoglobin 28 pg (27-31); Mean Corpuscular Volume 83 fL (80-94); Mean Platelet Volume 8.2 fL (7.4-10.4); Platelet Count 213 10^3/uL (150-450); Red Blood Count 4.93 10^6 /uL (4.18-5.48); Red Cell Distribution Width 16 % (10-15); White Blood Count 7.8 10^3/uL (3.5-10.8)
[2020-01-01 07:44] LABS: Activated Partial Thrombo Time 69.5 seconds (26.0-38.0); INR 1.91 (0.82-1.09)
[2020-01-01 07:45] LABS: EGFR Non-African American 76.1 (>60)
[2020-01-01] MEDS ORDERED: Regadenoson* 0.4 MG/5 ML SYRINGE ONE (09:22)
[2020-01-01] MEDS ORDERED: Aminophylline IV* 25 MG/ML 10 ML VIAL ONE (09:22)
[2020-01-01] MEDS: Multivitamins/Minerals TAB PO SCH (10:50)
[2020-01-01] MEDS: traMADol TAB* 50 MG PO PRN (10:50)
[2020-01-01] MEDS: Metoprolol Succinate XL TAB* 100 MG PO SCH (10:50)
[2020-01-01 11:10] VITALS: BP 124/67
--- NOTE | 2020-01-01 12:17 | PN ---
Progress Note - Progress Note Date of Service: 01/01/20 Note: Stress test negative for ischemia, achieved 7 METS on TM, normal EF INR 1.9 Pt today expressed some anxiety about med changes, ability to work on current meds. He can resume work at his discretion. Admits overall better c/w admission. Digoxin (Lanoxin Tab*) 0.125 mg PO 1700 [facility] Last Admin: 12/31/19 17:33 Dose: 0.125 mg Heparin Sodium (Porcine) (Heparin Vial(*)) 0 units IV .FOR HEPARIN BOLUSES [facility] Last Admin: 12/28/19 13:57 Dose: 7,300 units Metoprolol Succinate (Toprol Xl Tab*) 75 mg PO QPM [facility] Last Admin: 12/31/19 17:31 Dose: 75 mg Metoprolol Succinate (Toprol Xl Tab*) 100 mg PO QAM [facility] Last Admin: 01/01/20 10:50 Dose: 100 mg Multivitamins/Minerals (Theragran/Minerals Tab*) 1 tab PO DAILY [facility] Last Admin: 01/01/20 10:50 Dose: 1 tab Polyethylene Glycol/Electrolytes (Miralax (17 Gm Dose Johnathan)) 17 gm PO DAILY PRN PRN Reason: CONSTIPATION Tramadol HCl (Ultram*) 50 mg PO Q6HR PRN PRN Reason: PAIN - MODERATE Last Admin: 01/01/20 10:50 Dose: 50 mg Warfarin Sodium (Coumadin Tab(*)) 7.5 mg PO DAILY@1700 [facility]; Protocol Vital Signs - 12 hr Temp Pulse Resp BP Pulse Ox 01/01/20 10:52 97.2 F 82 20 124/67 99 01/01/20 10:50 20 01/01/20 08:00 18 01/01/20 07:14 97.8 F 80 18 148/79 97 01/01/20 03:15 97.7 F 80 16 140/72 97 Exam stable. A/P Home today tentative plan. Ready for discharge, see full discharge summary Time spent with patient and on discharge plans 60 minutes, > 50% face to face time with the patient.
[2020-01-01] MEDS ORDERED: Enoxaparin(*) 30 MG/0.3 ML SYR ONE (14:09)
--- NOTE | 2020-01-01 14:33 | DS ---
CC: Dr. Tommy Liz; Dr. Jenkins* DISCHARGE SUMMARY: DATE OF ADMISSION: 12/27/19 DATE OF DISCHARGE: 01/01/20 HISTORY OF PRESENT ILLNESS/HOSPITAL COURSE: The patient is a 69-year-old gentleman who recently had a dental abscess and secondary Oc's angina, who underwent dental extraction and was on antibiotics. He was seen by his sleep physician last week who noted his pulse was rapid, the patient was unaware of his rapid pulse or any other symptomatology. The patient was advised to follow up with Dr. Jenkins, but presented to the emergency room on 12/27/19 and EKG confirmed he was in AFib with a rapid ventricular rate. As the patient did not have symptoms, it was uncertain how long he had been in it. At this point, rate control was performed with increase in his metoprolol to 75 mg b.i.d. and initiation of digoxin. Anticoagulation was initiated, Coumadin and a heparin drip. It was felt that as we do not have data on NOACs in morbidly obese patients, it was safest to initiate Coumadin. The patient had had some chest discomfort, he had normal coronaries on distant cath. As risk stratification to safely initiate antiarrhythmics is needed, he underwent a 2-day stress test, which revealed normal ejection fraction of 58% and normal perfusion. No evidence of perfusion defect at rest or stress. The EKG portion of the exercise test showed he was able to achieve a workload of 7 METs and had no significant EKG changes. DIAGNOSTIC STUDIES/LAB DATA: Testing: Nuclear test as above. Echocardiogram on 12/27/19 showed an ejection fraction of 60% to 65%, interventricular flattening with the right ventricle showing moderate dilatation and normal systolic function. He had severe biatrial enlargement, trace to mild mitral insufficiency, trace to mild tricuspid insufficiency, and mild dilatation of the ascending aorta. CT angiogram of the chest on 12/28/19 was negative for pulmonary embolism and atherosclerosis was noted in the thoracic aorta. Labs on the day of discharge: White count 7.8, hemoglobin 13.9, platelets 213. INR 1.9, PTT 69.5. Electrolytes on 12/28/19: Sodium 140, potassium 3.6, chloride 101, BUN 24, creatinine 1.04. Troponins during the admission were checked in series x4 and were 0.00. TSH was 2.24. BNP 422, was 227. The patient was hepatitis C antibody negative. PHYSICAL EXAMINATION ON DISCHARGE: The patient is 5 feet 9 inches, weighs 340 pounds with a BMI of 50.3. He was afebrile, pulse of 82 and irregular, respiratory rate of 20, oxygen saturation 99% on room air, and blood pressure 124/67. General Appearance: Morbidly obese, somewhat older gentleman, seated, appears comfortable, in no acute distress. Mask is on. Psychologically, pleasant and cooperative. Neurologically, awake, alert, and oriented to person, place, and time. Grossly normal sensory and motor function in the upper and lower extremities and gait appropriate for girth. No deficits appreciated. Skin: Warm, dry. No cyanosis or rashes. HEENT: Neck is thick, but no appreciable increased JVP. Breath sounds were distant, but clear with good effort. No wheezes, rales, or rhonchi. Coronary: S1, S2, irregularly irregular without murmurs or rubs. Abdomen: Very overweight, nontender. Normal bowel sounds. Lower extremities were free of edema (improved from edema on admission). ASSESSMENT AND PLAN: In summary, Mr. Houser is a 69-year-old gentleman admitted with atrial fibrillation of uncertain duration with a rapid ventricular rate, admitted for anticoagulation loading, rate control, and he underwent a stress test for chest pain showing no evidence of ischemia. The patient has an additional problem list of: 1. Morbid obesity. 2. Recent Oc's angina and dental infection. 3. Hypertension. 4. CPAP. On day of discharge, the patient was a little anxious about going home with respect to being able to work on his new medications. His metoprolol has been increased the night before to 100 mg in the day and 75 at night, so I made the decision to lower it to his previous dose during the admission of 75 b.i.d. He will be sent home with 2 doses of Lovenox 150 b.i.d. to take tonight and tomorrow. He will check his INR in the morning, coordinate with Dr. Liz and his team to determine if he can stop this. He is being sent home on 7 mg of Coumadin daily. DISCHARGE MEDICATIONS: Include: 1. Digoxin 0.125 mg daily. 2. Lovenox 150 mg q.12 hours 2 doses and then as directed by Dr. Liz. 3. Toprol-XL 75 mg b.i.d. 4. MultiVites 1 tab daily. 5. MiraLAX p.r.n. constipation. 6. Coumadin 7 mg a day. 7. Aspirin 81 mg a day. 8. Lipitor 10 mg a day. 9. Tramadol p.r.n. pain. We are stopping his hydrochlorothiazide. DISCHARGE FOLLOWUP: The patient will follow up with INRs with Dr. Liz, the first one will be tomorrow. The patient will follow up with Dr. Jenkins. He has an appointment scheduled on 01/06/20 for Cardiology followup. DISCHARGE DISPOSITION: The patient will be discharged to home. CONDITION AT DISCHARGE: Stable to improved. [id number]/[facility] #: [id number]
[2020-01-01] MEDS ORDERED: Warfarin TAB(*) 7.5 MG PO SCH (17:00)
== END 2020-01-01 15:48 | disposition home or self-care (01) | DRG 309 ==
LOC: ED 19:19 → MEDTELE 23:36 → ED 12-28 01:00 → OBSVTOIN 12-28 13:04
PROVIDERS: ADMIT Hospitalist; ATTEND Specialist
DX: I48.19 Other persistent atrial fibrillation (principal); Z68.43 Body mass index [BMI] 50.0-59.9, adult; N18.3 Chronic kidney disease, stage 3 (moderate); I77.819 Aortic ectasia, unspecified site; K76.0 Fatty (change of) liver, not elsewhere classified; I12.9 Hypertensive chronic kidney disease with stage 1 through stage 4 chronic kidney disease, or unspecified chronic kidney disease; I08.1 Rheumatic disorders of both mitral and tricuspid valves; E66.01 Morbid (severe) obesity due to excess calories; R07.89 Other chest pain; D64.9 Anemia, unspecified; G47.33 Obstructive sleep apnea (adult) (pediatric); I49.3 Ventricular premature depolarization; E78.5 Hyperlipidemia, unspecified; Z99.89 Dependence on other enabling machines and devices; Z79.82 Long term (current) use of aspirin; Z79.899 Other long term (current) drug therapy; Z88.6 Allergy status to analgesic agent; Z88.8 Allergy status to other drugs, medicaments and biological substances; Z84.1 Family history of disorders of kidney and ureter; Z87.891 Personal history of nicotine dependence
CPT/HCPCS: 36415; 71045; 71275; 78452; 80048; 80053; 82565; 83605; 83735; 83880; 84443; 84484; 84520; 85025; 85610; 85730; 86803; 93005; 93017; 93306; 94660; 96374; 99284; A9270-GY; A9502; C8929; J0280; J1160; J1644; J1650; J1940; J2785; J3475; J3490; Q9967

== ENCOUNTER 2020-09-25 09:53 | Observation (INO) ==
[2020-09-25 12:39] LABS: ABS Basophils 0.1 10^3/ul (0-0.2); ABS Lymphocytes 0.8 10^3/ul (1.0-4.8); ABS Monocytes 0.7 10^3/ul (0-0.8); Eosinophil % 0.6 %; Hematocrit 40 % (42-52); Hemoglobin 13.1 g/dL (14.0-18.0); Lymphocyte % 10.6 %; Mean Corpuscular HGB Conc 33 g/dL (31-36); Mean Corpuscular Hemoglobin 28 pg (27-31); Mean Corpuscular Volume 86 fL (80-94); Mean Platelet Volume 9.1 fL (7.4-10.4); Platelet Count 209 10^3/uL (150-450); Red Blood Count 4.62 10^6 /uL (4.18-5.48); Red Cell Distribution Width 15 % (10-15); White Blood Count 7.5 10^3/uL (3.5-10.8)
[2020-09-25 12:47] LABS: INR 2.25 (0.82-1.09)
[2020-09-25 12:57] LABS: Influenza A Molecular Negative (Negative); Influenza B Molecular Negative (Negative)
[2020-09-25 13:00] LABS: Albumin 4.3 g/dL (3.2-5.2); Albumin/Globulin Ratio 1.7 (1-3); BUN/Creatinine Ratio 16.8 (8-20); C Reactive Protein 16.42 mg/L (<8.01); Calcium 8.9 mg/dL (8.6-10.3); EGFR African American 83.2 (>60); EGFR Non-African American 68.7 (>60); Globulin 2.5 g/dL (2-4); Potassium 4.5 mmol/L (3.5-5.0); Total Bilirubin 1.3 mg/dL (0.2-1.0); Total Protein 6.8 g/dL (6.4-8.9)
[2020-09-25] MEDS ORDERED: Furosemide 40 mg/4 ml IV VIAL IV SLOW PU ONE (13:13)
[2020-09-26 06:35] LABS: BUN/Creatinine Ratio 17.1 (8-20); Calcium 8.8 mg/dL (8.6-10.3); EGFR African American 79.7 (>60); EGFR Non-African American 65.9 (>60); Potassium 3.7 mmol/L (3.5-5.0)
[2020-09-26] MEDS ORDERED: Multivitamins/Minerals TAB PO SCH (09:00)
[2020-09-26] MEDS ORDERED: Furosemide 40 mg/4 ml IV VIAL IV SLOW PU ONE (09:00)
[2020-09-26 16:00] VITALS: BP 149/63
[2020-09-26] MEDS ORDERED: Warfarin DAILY REMINDER **NOTE FOLLOW UP SCH (17:00)
== END 2020-09-26 17:16 | disposition home or self-care (01) ==
LOC: ED 09:53 → MEDTELE 09:53
PROVIDERS: ADMIT Internal Medicine; ATTEND Internal Medicine